=== PATIENT | female | born 1955 | race Caucasian/White ===

== ENCOUNTER → 2020-11-15 | Outpatient (CLI) | payer MEDICARE, MEDICAID ==
[2016-08-07 11:15] VITALS: BP 125/55
[~2020-11-15] MED LIST: ASPI-482 PO; CHOL500016 PO; CIPR500T94 PO; CITA40TA5 PO; CONTRAST GIVEN. MC PRN; CYAN-25 PO; CYCL10TA2 PO; DOCU-150 PO; FURO40TA4 PO; HYDR-2761 PO; HYDR-2765 PO; IOHEXOL 240 MG/ML 50ML VIAL. PO ONE; IOHEXOL 300 MG/ML 100ML VIAL. IV ONE; LEVO100T5 PO; MOME13HF2 IH; MONT10TA49 PO; OLME40TA12 PO; OMEP40CA45 PO; OXYC1TAB7 PO; TIOT18CA IH; VENTOLIN HFA18 GM INH
--- NOTE | 2020-11-15 18:04 | RAD ---
EXAM: CT Chest, Abdomen, and Pelvis with IV contrast INDICATION: Reason: RESTAGING ANAL CANCER (CANAL) / Spl. Instructions: IV OMNI 300 75 MLS AND PO OMNI 240 50 MLS / History: TECHNIQUE: Multi-detector row CT images were acquired from the thoracic inlet through the ischial tu berosities with the use of IV contrast. Sagittal and coronal images were acquired from the transaxial data. All CT scans performed at this facility utilize dose optimization techniques as appropriate to the exam, including the following: Automated exposure control and adjustment of the mA and/or KV acc ording to patient size (this includes techniques or standardized protocols for targeted exams where d ose is indication/reason for exam). IV CONTRAST: Administered ORAL CONTRAST: Administered COMPARISON: No relevant comparisons are currently available. FINDINGS: CHEST: CARDIOVASCULAR: Unremarkable MEDIASTINUM & JERMAINE: No adenopathy or masses. LUNGS: No pulmonary infiltrate, nodule, or other focal abnormality. PLEURAL SPACE: Trace right pleural effusion. Otherwise no pleural effusions or pneumothorax. OSSEOUS & SOFT TISSUE: Unremarkable ABDOMEN/PELVIS: LIVER: Unremarkable BILIARY SYSTEM: Gallbladder is absent. Bile ducts are not dilated. PANCREAS: Unremarkable SPLEEN: Unremarkable ADRENALS: Unremarkable KIDNEYS & URETERS: Unremarkable BLADDER: Unremarkable REPRODUCTIVE ORGANS: Hysterectomy. Ovaries not seen and likely surgically absent as well. No adnexal mass or pelvic fluid collection. GASTROINTESTINAL: The stomach, small bowel, and colon are unremarkable. Nonspecific soft tissue fulln ess at the anal canal is present (image 82 of axial series 4). The appendix is normal. MESENTERY/PERITONEUM/RETROPERITONEUM: Unremarkable VASCULAR: Unremarkable LYMPH NODES: No adenopathy OSSEOUS & SOFT TISSUES: Unremarkable IMPRESSION: Nonspecific soft tissue fullness of the anal canal, possibly reflecting posttreatment changes. No simón dence of locally advanced disease or distant metastases in the included field of view.. Electronically signed by: Bill Noel MD (11/15/2020 6:02 PM) [id number]
== END ==
LOC: CT 11:50
PROVIDERS: ATTEND Internal Medicine Hematology & Oncology
DX: C21.0 Malignant neoplasm of anus, unspecified (principal)
CPT/HCPCS: 71260; 74177; Q9966; Q9967

== ENCOUNTER → 2020-11-28 | Outpatient (CLI) | payer MEDICARE, MEDICAID ==
[2016-08-07 11:15] VITALS: BP 125/55
[~2020-11-28] MED LIST changes: +BUPR300T92 PO; -CONTRAST GIVEN. MC PRN; +CRESTOR40 MG PO; +DULO60CA6 PO; +GADOTERATE 7.5 MMOL/15ML VIAL. IVP ONE; -IOHEXOL 240 MG/ML 50ML VIAL. PO ONE; -IOHEXOL 300 MG/ML 100ML VIAL. IV ONE; +TORS10TA3 PO; +[UNRECOGNIZED DRUG - CODE] PO
--- NOTE | 2020-11-28 15:23 | KCIC ---
MRI of the thoracic spine without and with contrast 11/28/2020 Clinical history: Chronic mid and low back pain. TECHNIQUE: Unenhanced T1-weighted, T2-weighted and inversion recovery sagittal and T1-weighted and T2 -weighted axial images of the thoracic spine were obtained. After the intravenous administration of 2 0 cc of Clariscan, enhanced T1-weighted sagittal and axial images of the thoracic spine were obtained . FINDINGS: Mild S-shaped curvature of the thoracolumbar spine is seen. Degenerative signal changes and loss of height are seen involving all of the disks of the thoracic spine. Degenerative signal change s are seen within the marrow surrounding these discs. The posterior aspect of the thoracic spinal cord is deformed by prominent CSF centered at T3-4. This finding is felt to reflect an underlying arachnoid cyst in this region. This is posterior to the thor acic spinal cord, right greater than left. It measures approximately 1.8 x 1.2 x 0.9 cm in craniocaud al, transverse and AP dimensions. This appears to impinge upon the thoracic spinal cord, right greate r than left at T3-4. There is questionable increased signal intensity involving the thoracic spinal c ord superior to this at the T2-3 level on the T2-weighted and inversion recovery images which may ref lect cord edema. This measures approximately 8 mm in greatest diameter. No additional area of abnorma l signal intensity is seen involving the thoracic spinal cord. No area of abnormal contrast enhanceme nt is noted. Degenerative changes are seen involving the thoracic disc spaces consisting of minimal to mild genera lized disc bulges and degenerative changes involving the facet joints. Small focal central/right para central disc protrusions are seen at T6-7, T7-8 and T8-9 which measure 2 to 3 mm in AP diameter. Thes e findings results in mild central spinal canal stenosis at T11-12 without evidence of cord impingeme nt. No neural foraminal stenosis is seen. IMPRESSION: 1. Degenerative changes are seen involving the thoracic spine. These findings result in mild central spinal canal stenosis at T11-12. No neural foraminal stenosis is seen. 2. . There appears to be an arachnoid cyst posterior to the thoracic spinal cord centered at T3-4. Th is appears to impinge upon the thoracic spinal cord, right greater than left at T3-4. Questionable ed marie is seen involving the thoracic spinal cord superior to this centered at T2-3. Electronically signed by: Dylan Hsieh MD (11/28/2020 3:21 PM) [id number]
== END ==
LOC: KCIC MRI 10:41
PROVIDERS: ATTEND Neurological Surgery
DX: M47.24 Other spondylosis with radiculopathy, thoracic region (principal); M48.04 Spinal stenosis, thoracic region
CPT/HCPCS: 72157; A9575

== ENCOUNTER → 2020-12-06 | Outpatient (CLI) | payer MEDICARE, MEDICAID ==
[2016-08-07 11:15] VITALS: BP 125/55
[~2020-12-06] MED LIST changes: -GADOTERATE 7.5 MMOL/15ML VIAL. IVP ONE
== END ==
LOC: LAB 11:24
PROVIDERS: ATTEND Internal Medicine Gastroenterology
DX: Z01.812 Encounter for preprocedural laboratory examination (principal); K63.5 Polyp of colon; Z20.822 Contact with and (suspected) exposure to COVID-19
CPT/HCPCS: U0003

== ENCOUNTER → 2020-12-09 | Day surgery (SDC) | payer MEDICARE, MEDICAID ==
[~2020-12-09] MED LIST changes: +HYDROmorphone 2 MG/ML VIAL IVP PRN; +IV RINGERS,LACTATED 1000ML 1,000 ML IV SCH; +LIDOCAINE 2% PF 5 ML VIAL. ONE; +MORPHINE SULFATE 2 MG/ML VIAL. IVP PRN; +PROCHLORPERAZINE 10 MG/2 ML VIAL. IVP PRN; +PROPOFOL 10 MG/ML (20ML) VIAL. IV ONE; +fentaNYL PF VIAL 100 MCG/2 ML VIAL IVP PRN
[2020-12-09 09:08] VITALS: BP 133/59
== END | disposition home or self-care (01) ==
LOC: SURG 07:38
PROVIDERS: ATTEND Internal Medicine Gastroenterology
DX: Z12.11 Encounter for screening for malignant neoplasm of colon (principal); K64.0 First degree hemorrhoids; Z85.038 Personal history of other malignant neoplasm of large intestine; E78.00 Pure hypercholesterolemia, unspecified; I10 Essential (primary) hypertension; J44.9 Chronic obstructive pulmonary disease, unspecified; E66.9 Obesity, unspecified; F41.9 Anxiety disorder, unspecified; F32.9 Major depressive disorder, single episode, unspecified; K21.9 Gastro-esophageal reflux disease without esophagitis; G47.30 Sleep apnea, unspecified; Z90.710 Acquired absence of both cervix and uterus; Z98.890 Other specified postprocedural states; Z87.891 Personal history of nicotine dependence; Z79.82 Long term (current) use of aspirin; Z79.899 Other long term (current) drug therapy; Z88.8 Allergy status to other drugs, medicaments and biological substances; Z88.5 Allergy status to narcotic agent
CPT/HCPCS: 45378; J2704

== ENCOUNTER → 2021-01-06 | Outpatient (CLI) | payer MEDICARE, MEDICAID ==
[2020-12-09 09:08] VITALS: BP 133/59
[~2021-01-06] MED LIST changes: +CYCL5TAB PO; -HYDROmorphone 2 MG/ML VIAL IVP PRN; -IV RINGERS,LACTATED 1000ML 1,000 ML IV SCH; -LIDOCAINE 2% PF 5 ML VIAL. ONE; -MORPHINE SULFATE 2 MG/ML VIAL. IVP PRN; +PANT20TA2 PO; -PROCHLORPERAZINE 10 MG/2 ML VIAL. IVP PRN; -PROPOFOL 10 MG/ML (20ML) VIAL. IV ONE; -fentaNYL PF VIAL 100 MCG/2 ML VIAL IVP PRN
[2021-01-06 13:17] LABS: BASO # 0.1 x10^3/uL (0.0-0.2); BASO % 1 % (0-3); EOS # 0.2 x10^3/uL (0.0-0.7); EOS % 2 % (0-3); HEMATOCRIT 39.6 % (36.0-47.0); HEMOGLOBIN 13.4 g/dL (12.0-15.5); LYMPH # 1.5 x10^3/uL (1.0-4.8); LYMPH % 21 % (24-48); MEAN CORPUSCULAR HEMOGLOBIN 32 pg (25-35); MEAN CORPUSCULAR HGB CONC 34 g/dL (31-37); MEAN CORPUSCULAR VOLUME 93 fL (79-100); MONO # 0.5 x10^3/uL (0.0-1.1); MONO % 7 % (0-9); NEUT # 4.9 x10^3/uL (1.8-7.7); NEUT % 69 % (31-73); PLATELET COUNT 256 x10^3/uL (140-400); RED BLOOD COUNT 4.26 x10^6/uL (3.50-5.40); WHITE BLOOD COUNT 7.1 x10^3/uL (4.0-11.0)
--- NOTE | 2021-01-06 13:22 | EKG ---
[facility] [address] [place] [address] Test Date: 2021-01-06 Test Time: 13:19:01 Pat Name: TANISHA RAMON Department: Room: Gender: F Spine Surgeon: : [id number] Requested By: ASHLEY BAÑUELOS Order Number: [id number] Reading MD: Stephen Najera MD Measurements Intervals Proctor Rate: 69 P: 50 TN: 156 QRS: 33 QRSD: 60 T: 54 QT: 358 QTc: 385 Interpretive Statements SINUS RHYTHM Electronically Signed On 01-09-2021 14:24:54 CDT by Stephen Najera MD
[2021-01-06 13:26] LABS: ALBUMIN 3.5 g/dL (3.4-5.0); ALBUMIN/GLOBULIN RATIO 0.9 (1.0-1.7); CREATININE 1.1 mg/dL (0.6-1.0); TOTAL BILIRUBIN 0.4 mg/dL (0.2-1.0); TOTAL PROTEIN 7.5 g/dL (6.4-8.2)
== END ==
LOC: SURGPAT 12:25
PROVIDERS: ATTEND Neurological Surgery
DX: Z01.818 Encounter for other preprocedural examination (principal); M48.04 Spinal stenosis, thoracic region; G96.191 Perineural cyst
CPT/HCPCS: 36415; 80053; 85025; 87641; 93005

== ENCOUNTER → 2021-01-11 | Outpatient (CLI) | payer MEDICARE, MEDICAID ==
[2020-12-09 09:08] VITALS: BP 133/59
--- NOTE | 2021-01-10 14:13 | HP ---
ADMIT DATE: HISTORY OF PRESENT ILLNESS: The patient is a pleasant 65-year-old, who is having difficulty with mid and lower back pain. She notices pain, which radiates diffusely into her left leg. She notices a burning, numbness in both of her feet. She rates her pain as 8/10 and says it is constant. Virtually any activity increases her pain. She feels that her lower extremities are weak. She takes Aleve. She has had no recent falls. PAST MEDICAL HISTORY: Arthritis, COPD, hypertension, kidney stones, hypothyroidism, ulcers, cancer/radiation treatment. PAST SURGICAL HISTORY: Cholecystectomy, hysterectomy, carpal tunnel release on the right, thyroidectomy, ACDF, lumbar laminectomy at L4-L5 in 07/2016. CURRENT MEDICATIONS: Levothyroxine, Ventolin, vitamin D3, Aleve, rosuvastatin, duloxetine, furosemide, bupropion, vitamin B12. ALLERGIES: CODEINE. FAMILY HISTORY: Cancer, hypertension. SOCIAL HISTORY: Disabled. . Quit smoking more than 10 years ago. Smoked 1-2 packs per day for 28 years. Drinks alcohol 1-2 times per year. PHYSICAL EXAMINATION: GENERAL: Alert, pleasant, in no acute distress. HEAD: Normocephalic, atraumatic. SKIN: Warm and dry, well-healed lumbar incision. MUSCULOSKELETAL: Thoracic paraspinal muscle bulk is normal. There is moderate tenderness of the thoracic region with palpation, lumbar paraspinal muscle bulk is normal, restricted range of motion of the lumbar spine, mild tenderness of the lower lumbar spine with palpation, normal range of motion of the lower extremities bilaterally. EXTREMITIES: No clubbing, cyanosis or edema. NEUROLOGIC: Alert and oriented x 3. Strength is 5/5 in the bilateral lower extremities, sensory was intact to light touch in the lower extremities bilaterally except for decreased light touch sensation involving both of her feet and diffusely in her left leg, reflexes were trace and symmetric in the lower extremities bilaterally, unsteady gait. IMAGING: I reviewed a thoracic MRI scan. On that study at T3-T4, there is a moderately large arachnoid cyst, which is associated with stenosis at that level. ASSESSMENT AND PLAN: I believe the thoracic cyst is contributing to her pain, unsteadiness and lower extremity numbness. I spoke with her about treatment options. One option would be to follow the cyst for a time and see if it enlarges; however, she has no interest in that approach. She would strongly like surgery to decompress her spine in an attempt to help her with her pain and numbness. I outlined the surgery, which would include a laminectomy at T3-L4 with fenestration of the intradural arachnoid cyst. I spoke about the possibility of incomplete removal of the cyst. I discussed the possibility that her condition could be worsened and she could become paralyzed. I outlined the risk of surgery, especially in view of some of her health issues. She understands. She would like to go ahead. We did also review the expected postoperative course. She understands and would like to go ahead. We will make the arrangements. ASHLEY BAÑUELOS MD DR: SUSANNE/deb JOB#: [id number] / [id number]
--- NOTE | 2021-01-11 10:35 | RAD ---
EXAM: Thoracic spine CT without contrast. HISTORY: Skin marking at T3-T4 for spinal surgery procedural guidance. TECHNIQUE: Computed tomographic images of the lumbar spine were obtained without contrast. Multiplana r reformatting was performed. *One or more of the following individualized dose reduction techniques were utilized for this examina tion: 1. Automated exposure control. 2. Adjustment of the mA and/or kV according to patient size. 3. Use of iterative reconstruction technique. COMPARISON: MRI dated 11/28/2020. FINDINGS: There is thoracic kyphoscoliosis. There is minimal anterolisthesis of T2 on T3 and T3 on T4 and T4 on T5. There is multilevel endplate remodeling and anterior predominant spurring. There are f ew thoracic endplate Schmorl's nodes. There is a bone island within the superior aspect of T11. There are few suspected osseous hemangiomas. There is no suspicious osseous lesion. There is instrumented intraspinal fusion and disc space fusion device placement at the lower cervical levels, not formally assessed on this exam. At C7-T1, there is a suspected posterior central disc pr otrusion. There is no stenosis. At T2-T3, there is a right paracentral disc protrusion. There is no stenosis. At T2-T3, there is slight ossification along the ligament of flavum. There is no stenosis. At T3-T4, there is ventral deviation of the thoracic spinal cord due to a suspected thoracic cord her niation or arachnoid cyst, better characterized on the prior MRI. There is moderate right facet arthr opathy. There is mild right foraminal stenosis. The skin overlying this level was marked for surgical guidance. At T4-T5, there is moderate right facet arthropathy. There is moderate right foraminal stenosis. At T5-T6, there is mild right facet arthropathy. There is no stenosis. At T6-T7, there is a right paracentral disc protrusion. There is no stenosis. At T7-T8, there is a left paracentral disc protrusion. There is no stenosis. At T8-T9, there is a left paracentral disc protrusion. There is no stenosis. At T8-9 and T10, there is no stenosis. At T10-T11, there is no stenosis. At T11-T12, there is a right paracentral to lateral recess disc protrusion and osteophyte complex. Th ere is mild right greater than left facet arthropathy. There is slight retrolisthesis. There is mild central canal stenosis. There is calcified atherosclerotic plaque involving the aorta and coronary arteries. There is a small right pleural effusion and right lower lobe atelectasis or pleural-parenchymal scarring. There is no pneumothorax. There is mild pulmonary emphysema with biapical subpleural bleb formation. There are 1 mm and 2 mm nodules within the left upper lobe, likely benign based on size. IMPRESSION: 1. Skin marking on the skin over the midline T3-T4 level for surgical guidance. There is ventral rahel ation of the thoracic spinal cord at this level is characterized on the prior MRI, the appearance of which favors a ventral cord herniation or arachnoid cyst. 2. Multilevel degenerative change involving the thoracic spine, described in detail above. This resul ts in foraminal and central canal stenosis at the aforementioned levels. 3. Instrumented fusion at the lower cervical levels, not formally assessed on this exam. 4. Mild thoracic kyphoscoliosis and minimal listhesis at the aforementioned levels. 5. Mild pulmonary emphysema with small right pleural effusion and right lower lobe atelectasis or sca rring. There are tiny benign-appearing nodules within the left upper lobe measuring up to 2 mm. Electronically signed by: Leesa Alvarado MD (01/11/2021 10:33 AM) [id number]
== END ==
LOC: CT 09:50
PROVIDERS: ATTEND Neurological Surgery
DX: M47.814 Spondylosis without myelopathy or radiculopathy, thoracic region (principal); M71.38 Other bursal cyst, other site; M51.44 Schmorl's nodes, thoracic region; M43.14 Spondylolisthesis, thoracic region; M51.24 Other intervertebral disc displacement, thoracic region; M25.78 Osteophyte, vertebrae; J90 Pleural effusion, not elsewhere classified
CPT/HCPCS: 72128

== ENCOUNTER 2021-01-12 07:01 | Inpatient (IN) | payer MEDICARE, MEDICAID ==
[2021-01-12] VITALS (9 sets, daily range): BP systolic 126–171; BP diastolic 58–76
[~2021-01-12] VITALS: Ht 165.1 cm; Wt 110.0 kg
--- NOTE | 2021-01-12 06:35 | HP ---
ADMIT DATE: 01/12/2021 HISTORY OF PRESENT ILLNESS: The patient is a pleasant 65-year-old, who is having difficulty with mid and lower back pain. She notices pain, which radiates diffusely into her left leg. She notices a burning, numbness in both of her feet. She rates her pain as 8/10 and says it is constant. Virtually any activity increases her pain. She feels that her lower extremities are weak. She takes Aleve. She has had no recent falls. PAST MEDICAL HISTORY: Arthritis, COPD, hypertension, kidney stones, hypothyroidism, ulcers, cancer/radiation treatment. PAST SURGICAL HISTORY: Cholecystectomy, hysterectomy, carpal tunnel release on the right, thyroidectomy, ACDF, lumbar laminectomy at L4-L5 in 07/2016. CURRENT MEDICATIONS: Levothyroxine, Ventolin, vitamin D3, Aleve, rosuvastatin, duloxetine, furosemide, bupropion, vitamin B12. ALLERGIES: CODEINE. FAMILY HISTORY: Cancer, hypertension. SOCIAL HISTORY: Disabled. . Quit smoking more than 10 years ago. Smoked 1-2 packs per day for 28 years. Drinks alcohol 1-2 times per year. PHYSICAL EXAMINATION: GENERAL: Alert, pleasant, in no acute distress. HEAD: Normocephalic, atraumatic. SKIN: Warm and dry, well-healed lumbar incision. MUSCULOSKELETAL: Thoracic paraspinal muscle bulk is normal. There is moderate tenderness of the thoracic region with palpation, lumbar paraspinal muscle bulk is normal, restricted range of motion of the lumbar spine, mild tenderness of the lower lumbar spine with palpation, normal range of motion of the lower extremities bilaterally. EXTREMITIES: No clubbing, cyanosis or edema. NEUROLOGIC: Alert and oriented x 3. Strength is 5/5 in the bilateral lower extremities, sensory was intact to light touch in the lower extremities bilaterally except for decreased light touch sensation involving both of her feet and diffusely in her left leg, reflexes were trace and symmetric in the lower extremities bilaterally, unsteady gait. IMAGING: I reviewed a thoracic MRI scan. On that study at T3-T4, there is a moderately large arachnoid cyst, which is associated with stenosis at that level. ASSESSMENT AND PLAN: I believe the thoracic cyst is contributing to her pain, unsteadiness and lower extremity numbness. I spoke with her about treatment options. One option would be to follow the cyst for a time and see if it enlarges; however, she has no interest in that approach. She would strongly like surgery to decompress her spine in an attempt to help her with her pain and numbness. I outlined the surgery, which would include a laminectomy at T3-L4 with fenestration of the intradural arachnoid cyst. I spoke about the possibility of incomplete removal of the cyst. I discussed the possibility that her condition could be worsened and she could become paralyzed. I outlined the risk of surgery, especially in view of some of her health issues. She understands. She would like to go ahead. We did also review the expected postoperative course. She understands and would like to go ahead. We will make the arrangements. ASHLEY BAÑUELOS MD DR: SUSANNE/deb JOB#: [id number] / [id number] SOPHY
[~2021-01-12 07:01] MED LIST changes: +BACITRACIN 50,000 UNIT in IV NORMAL SALINE 1000ML BAG 1,000 ML IRR ONE; -DOCU-150 PO; +DOCU-158 PO; +HYDROmorphone 2 MG/ML VIAL IVP PRN; +IV RINGERS,LACTATED 1000ML 1,000 ML IV SCH; -OMEP40CA45 PO; +OMEP40CA7 PO; +PROCHLORPERAZINE 10 MG/2 ML VIAL. IVP PRN; +fentaNYL PF VIAL 100 MCG/2 ML VIAL IVP PRN
[2021-01-12] MEDS ORDERED: KETOROLAC 60 MG/2 ML VIAL. ONE (07:09)
[2021-01-12] MEDS ORDERED: GELATIN SPONGE SIZE 100. ONE (07:09)
[2021-01-12] MEDS ORDERED: BUPIVACAINE-EPI 0.5%-1:200000 MPF 30 ML VIAL. ONE (07:09)
[2021-01-12] MEDS ORDERED: THROMBIN TOPICAL 20,000 UNIT SPRAY.SYRN KIT TP ONE (07:10)
[2021-01-12] MEDS ORDERED: SCOPOLAMINE 1.5MG PATCH. TD ONE (07:30)
[2021-01-12] MEDS ORDERED: PROPOFOL 50 ML IV ONE ×2 (07:37→10:27)
[2021-01-12] MEDS ORDERED: SUCCINYLCHOLINE 200 MG/10 ML VIAL. ONE (07:37)
[2021-01-12] MEDS ORDERED: PROPOFOL 10 MG/ML (20ML) VIAL. IV ONE (07:37)
[2021-01-12] MEDS ORDERED: fentaNYL PF VIAL 100 MCG/2 ML VIAL ONE ×2 (07:37→14:19)
[2021-01-12] MEDS ORDERED: ROCURONIUM 50 MG/5 ML VIAL. ONE (07:38)
[2021-01-12] MEDS ORDERED: REMIFENTANIL 2 MG VIAL. IV ONE (07:38)
[2021-01-12] MEDS ORDERED: 0.9 % SODIUM CHLORIDE 20 ML VIAL. IJ ONE (07:40)
[2021-01-12] MEDS ORDERED: ceFAZolin 2GM PREMIX 2 GM/50 ML BAG IV ONE (08:00)
[2021-01-12] MEDS: ceFAZolin SODIUM IV Push 1 GM VIAL. IVP SCH ×3 (09:20→17:14)
[2021-01-12] MEDS ORDERED: PHENYLEPHRINE in 0.9% NACL PF 1 MG/10 ML SYRINGE. IV ONE (09:36)
[2021-01-12] MEDS ORDERED: DEXAMETHASONE SOD PHOS 4 MG/ML VIAL ONE ×2 (09:54→10:40)
[2021-01-12] MEDS ORDERED: MAG HYDROX/ALUMINUM HYD/SIMETH 30 ML ORAL.SUSP PO PRN (10:00)
[2021-01-12] MEDS ORDERED: fentaNYL PF VIAL 100 MCG/2 ML VIAL IVP PRN (10:00)
[2021-01-12] MEDS ORDERED: diphenhydrAMINE HCL 25 MG CAPSULE PO PRN (10:00)
[2021-01-12] MEDS ORDERED: CALCIUM CARBONATE 500 MG TAB.CHEW PO PRN (10:00)
[2021-01-12] MEDS ORDERED: 0.9 % SODIUM CHLORIDE 10 ML DISP.SYRIN. IV PRN (10:00)
[2021-01-12] MEDS ORDERED: ACETAMINOPHEN 325 MG TABLET. PO PRN (10:00)
[2021-01-12] MEDS ORDERED: ALBUTEROL SULFATE 2.5 MG/3 ML NEBU. NEB PRN (10:00)
[2021-01-12] MEDS ORDERED: NALOXONE 0.4 MG/ML VIAL. IV PRN (10:00)
[2021-01-12] MEDS ORDERED: MAGNESIUM HYDROXIDE 2,400 MG/30 ML ORAL.SUSP. PO PRN (10:00)
[2021-01-12] MEDS ORDERED: ONDANSETRON PF 4 MG/2 ML VIAL. ONE (11:49)
[2021-01-12] MEDS ORDERED: NON FORMULARY ITEM (Albuterol Sulfate (Ventolin Hfa Inhaler) 2 PUFF) INH SCH (12:00)
[2021-01-12] MEDS ORDERED: REMIFENTANIL 1 MG VIAL. IV ONE (12:28)
[2021-01-12] MEDS ORDERED: ceFAZolin SODIUM IV Push 1 GM VIAL. IVP ONE ×2 (12:58→13:35)
[2021-01-12] MEDS: fentaNYL PF VIAL 100 MCG/2 ML VIAL IVP PRN ×2 (14:21→14:26)
[2021-01-12] MEDS ORDERED: MORPHINE SULFATE 2 MG/ML VIAL. ONE (14:43)
[2021-01-12] MEDS: CYCLOBENZAPRINE 10 MG TABLET. PO SCH ×3 (14:45→22:59)
[2021-01-12] MEDS: MORPHINE SULFATE 2 MG/ML VIAL. IVP PRN ×2 (14:47→14:58)
[2021-01-12] MEDS ORDERED: HYDROmorphone 2 MG/ML VIAL ONE (15:15)
[2021-01-12] MEDS: PANTOPRAZOLE 40 MG TABLET.DR. PO SCH (17:13)
[2021-01-12] MEDS: LOSARTAN POTASSIUM 50 MG TABLET. PO SCH (17:13)
[2021-01-12] MEDS: POTASSIUM CL 20MEQ D5-0.45NACL 1,000 ML IV SCH ×2 (17:14→23:20)
--- NOTE | 2021-01-12 17:40 | NUR ---
received from recovery. she is alert and oriented x 4. she has tremors in bilateral upper extremities. 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 pulses are equal and strong. she states that from her elbows to shoulders are painful. explained is probably related to positioning from ct scan yesterday and the surgery today. dressing from her neck to upper back is clean dry and intact. No swelling noted. ice pack placed. bilateral feet extension and flexion are equal. gait not observed at this time. states she fell 2 days ago. denies use of walker and/or cane.admits she might need one. states that she still has tingling in her left toes and some numbness in left leg. she is able to feed her herself regardless of the bilateral tremors. Farida states that she did not take any medications this am or last evening. she was given her blood pressure, gerd medication and antibiotic along with pain medication. refused flexeeril states that it does not help her. Addendum: 01/12/21 at 1750 by GISELA LOPEZ RN Flexeril
--- NOTE | 2021-01-12 18:48 | NUR ---
up to bedside commode with assist of 2 and walker. voided large amount. she has swelling in the upper neck; ice applied. up in recliner. fan on.
[2021-01-12] MEDS: DOCUSATE SODIUM 100 MG CAPSULE. PO SCH (19:42)
[2021-01-12] MEDS: LEVOTHYROXINE 100 MCG TABLET PO SCH (19:43)
[2021-01-12] MEDS: DULoxetine HCL 30 MG CAPSULE.DR PO SCH (19:44)
[2021-01-12] MEDS: HYDROcodone/APAP 5/325MG 1 TAB TABLET PO PRN (19:45)
[2021-01-12] MEDS ORDERED: NON FORMULARY ITEM (Rosuvastatin Calcium (Crestor) 20 MG) PO SCH (21:00)
[2021-01-13] MEDS: ceFAZolin SODIUM IV Push 1 GM VIAL. IVP SCH ×2 (01:03→08:29)
[2021-01-13] MEDS: HYDROcodone/APAP 5/325MG 1 TAB TABLET PO PRN ×2 (01:04→08:29)
[2021-01-13 03:00] VITALS: BP 124/47
[2021-01-13] MEDS: PANTOPRAZOLE 40 MG TABLET.DR. PO SCH (06:23)
--- NOTE | 2021-01-13 06:30 | NUR ---
Patient has rested quietly this shift. Up to void as needed. Cold Packs to incision for comfort as needed. Pain medication given as needed and Patient verbalized relief of pain with pain med given. Patient denies pain at this time. Call light in reach. Instructed Patient to call for assist as needed. Patient verbalized understanding.
[2021-01-13 06:39] VITALS: BP 119/49
[2021-01-13] MEDS: DOCUSATE SODIUM 100 MG CAPSULE. PO SCH ×2 (08:31→20:23)
[2021-01-13] MEDS: CYANOCOBALAMIN (VITAMIN B-12) 1,000 MCG TABLET. PO SCH (08:31)
[2021-01-13] MEDS: DULoxetine HCL 30 MG CAPSULE.DR PO SCH ×2 (08:31→20:23)
[2021-01-13] MEDS: TORSEMIDE 20 MG TABLET. PO SCH (08:32)
[2021-01-13] MEDS: CHOLECALCIFEROL (VITAMIN D3) 5,000 UNIT CAPSULE PO SCH (08:32)
[2021-01-13] MEDS: CYCLOBENZAPRINE 10 MG TABLET. PO SCH ×3 (08:37→20:24)
[2021-01-13] MEDS: LOSARTAN POTASSIUM 50 MG TABLET. PO SCH (08:41)
[2021-01-13] MEDS: hydroCHLOROthiazide 12.5 MG CAPSULE PO SCH (08:41)
--- NOTE | 2021-01-13 09:00 | NUR ---
Up for breakfast and return back to bed. Still having a lot pain chest area/breasts. Incision site intact with scant shadowing. No c/o pain arms. Using walker to ambulate. Cont. monitor.
[2021-01-13 11:09] VITALS: BP 148/65
--- NOTE | 2021-01-13 12:28 | PDOC ---
PROGRESS NOTES Date of Service DATE: 01/13/21 TIME: 12:25 Subjective Subjective POD #1 Up in chair c/o back /incisional pain no headache has been up and ambulated with PT Objective Objective Vital Signs Date Time Temp Pulse Resp B/P (MAP) Pulse Ox O2 Delivery O2 Flow Rate FiO2 01/13/21 11:09 98.6 73 20 148/65 (92) 91 Room Air 98.6 01/13/21 06:39 2.0 Intake and Output 01/13/21 07:00 Intake Total 2340 ml Output Total 1475 ml Balance 865 ml Intake Oral 840 ml IV Total 1500 ml Output Urine Total 1400 ml Estimated Blood Loss 75 ml Physical Exam General: Alert, Cooperative Neuro: Other (LE strength 5/5 ) Skin: Other (dressing dry and intact) Plan Plan of Care Continue PT Pain control possible dc tomorrow Comment Review of Relevant I have reviewed the following items jase (where applicable) has been applied. Labs Laboratory Tests Test 01/12/21 07:25 SARS-CoV-2 RNA (ZAHRA) Negative (Negative) SARS-CoV-2 Antigen (Rapid) Negative (NEGATIVE) Medications Current Medications Bacitracin 89468 unit/Sodium Chloride 1,000 ml @ 1,000 mls/hr 1X ONCE IRR Last administered on 01/12/21at 10:09; Start 01/12/21 at 06:00; Stop 01/12/21 at 06:59; Status DC Fentanyl Citrate (Fentanyl 2ml Vial) 25 mcg PRN Q5MIN PRN IVP MILD PAIN 1-3; Start 01/12/21 at 06:00; Stop 01/13/21 at 05:59; Status DC Fentanyl Citrate (Fentanyl 2ml Vial) 50 mcg PRN Q5MIN PRN IVP MODERATE PAIN 4-6 Last administered on 01/12/21at 14:26; Start 01/12/21 at 06:00; Stop 01/13/21 at 05:59; Status DC Morphine Sulfate (Morphine Sulfate) 1 mg PRN Q10MIN PRN IVP SEVERE PAIN 7-10 Last administered on 01/12/21at 14:58; Start 01/12/21 at 06:00; Stop 01/13/21 at 05:59; Status DC Ringer's Solution 1,000 ml @ 30 mls/hr Q24H IV Last administered on 01/12/21at 07:55; Start 01/12/21 at 06:00; Stop 01/12/21 at 17:59; Status DC Hydromorphone HCl (Dilaudid) 0.5 mg PRN Q10MIN PRN IVP SEVERE PAIN 7-10, 2nd CHOICE Last administered on 01/12/21at 15:17; Start 01/12/21 at 06:00; Stop 01/13/21 at 05:59; Status DC Prochlorperazine Edisylate (Compazine) 5 mg PACU PRN PRN IVP NAUSEA, MRX1; Start 01/12/21 at 06:00; Stop 01/13/21 at 05:59; Status DC Cefazolin Sodium/ Dextrose 50 ml @ 100 mls/hr 1X ONCE IV Last administered on 01/12/21at 09:20; Start 01/12/21 at 06:00; Stop 01/12/21 at 06:29; Status DC Gelatin (Gelfoam Size 100) 1 each STK-MED ONCE .ROUTE Last administered on 01/12/21at 10:09; Start 01/12/21 at 07:09; Stop 01/12/21 at 07:10; Status DC Bupivacaine HCl/ Epinephrine Bitart (Sensorcain-Epi 0.5%-1:498774 Mpf) 30 ml STK-MED ONCE .ROUTE Last administered on 01/12/21at 10:09; Start 01/12/21 at 07:09; Stop 01/12/21 at 07:10; Status DC Ketorolac Tromethamine (Toradol Im) 60 mg STK-MED ONCE .ROUTE Last administered on 01/12/21at 10:09; Start 01/12/21 at 07:09; Stop 01/12/21 at 07:10; Status DC Thrombin 20,000 unit STK-MED ONCE TP Last administered on 01/12/21at 10:09; Start 01/12/21 at 07:10; Stop 01/12/21 at 07:10; Status DC Scopolamine (Transderm-Scop) 1 patch 1X ONCE TD Last administered on 01/12/21at 07:55; Start 01/12/21 at 07:30; Stop 01/12/21 at 07:31; Status DC Propofol (Diprivan) 200 mg STK-MED ONCE IV ; Start 01/12/21 at 07:37; Stop 01/12/21 at 07:37; Status DC Propofol 50 ml @ As Directed STK-MED ONCE IV ; Start 01/12/21 at 07:37; Stop 01/12/21 at 07:37; Status DC Fentanyl Citrate (Fentanyl 2ml Vial) 100 mcg STK-MED ONCE .ROUTE ; Start 01/12/21 at 07:37; Stop 01/12/21 at 07:37; Status DC Succinylcholine Chloride (Anectine) 200 mg STK-MED ONCE .ROUTE ; Start 01/12/21 at 07:37; Stop 01/12/21 at 07:38; Status DC Rocuronium Lyons (Zemuron) 50 mg STK-MED ONCE .ROUTE ; Start 01/12/21 at 07:38; Stop 01/12/21 at 07:38; Status DC Remifentanil HCl (Ultiva) 2 mg STK-MED ONCE IV ; Start 01/12/21 at 07:38; Stop 01/12/21 at 07:39; Status DC Sodium Chloride (SODIUM CHLORIDE 20ml) 20 ml STK-MED ONCE IJ ; Start 01/12/21 at 07:40; Stop 01/12/21 at 07:40; Status DC Phenylephrine HCl (PHENYLEPHRINE in 0.9% NACL PF) 1 mg STK-MED ONCE IV ; Start 01/12/21 at 09:36; Stop 01/12/21 at 09:36; Status DC Cyanocobalamin (Vitamin B-12) 1,000 mcg DAILY PO Last administered on 01/13/21at 08:31; Start 01/13/21 at 09:00 Levothyroxine Sodium (Synthroid) 100 mcg QHS PO Last administered on 01/12/21at 19:43; Start 01/12/21 at 21:00 Non-Formulary Medication (Albuterol Sulfate (Ventolin Hfa Inhaler)) 2 puff Q4HRS INH ; Start 01/12/21 at 12:00; Status UNV Vitamin D (Vitamin D3) 5,000 unit DAILY PO Last administered on 01/13/21at 08:32; Start 01/13/21 at 09:00 Cyclobenzaprine HCl (Flexeril) 5 mg TID PO Last administered on 01/13/21at 08:37; Start 01/12/21 at 14:00 Duloxetine HCl (Cymbalta) 60 mg BID PO Last administered on 01/13/21at 08:31; Start 01/12/21 at 21:00 Pantoprazole Sodium (Protonix) 40 mg DAILYAC PO Last administered on 01/13/21at 06:23; Start 01/12/21 at 17:00 Non-Formulary Medication (Rosuvastatin Calcium (Crestor)) 20 mg HS PO ; Start 01/12/21 at 21:00; Status UNV Hydrochlorothiazide (Microzide) 12.5 mg DAILY PO Last administered on 01/13/21at 08:41; Start 01/13/21 at 09:00 Losartan Potassium (Cozaar) 100 mg DAILY PO Last administered on 01/13/21at 08:41; Start 01/12/21 at 17:00 Torsemide (Demadex) 10 mg DAILY PO Last administered on 01/13/21at 08:32; Start 01/13/21 at 09:00 Dexamethasone Sodium Phosphate (Decadron) 4 mg STK-MED ONCE .ROUTE ; Start 01/12/21 at 09:54; Stop 01/12/21 at 09:54; Status DC Albuterol Sulfate (Ventolin Neb Soln) 2.5 mg PRN Q4HRS PRN NEB SHORTNESS OF BREATH; Start 01/12/21 at 10:00 Acetaminophen (Tylenol) 650 mg PRN Q6HRS PRN PO MILD PAIN / TEMP > 100.3'F; Start 01/12/21 at 10:00 Al Hydroxide/Mg Hydroxide (Mylanta Plus Xs) 30 ml PRN Q3HRS PRN PO HEARTBURN / GAS; Start 01/12/21 at 10:00 Calcium Carbonate/ Glycine (Tums) 500 mg PRN Q3HRS PRN PO INDIGESTION; Start 01/12/21 at 10:00 Diphenhydramine HCl (Benadryl) 25 mg PRN Q6HRS PRN PO ITCHING; Start 01/12/21 at 10:00 Naloxone HCl (Narcan) 0.1 mg PRN Q2MIN PRN IV SEE COMMENTS; Start 01/12/21 at 10:00 Sodium Chloride (Normal Saline Flush) 3 ml QSHIFT PRN IV AFTER MEDS AND BLOOD DRAWS; Start 01/12/21 at 10:00 Potassium Chloride/Dextrose/ Sod Cl 1,000 ml @ 75 mls/hr [id number] IV Last administered on 01/12/21at 17:14; Start 01/12/21 at 10:00 Acetaminophen/ Hydrocodone Bitart (Lortab 5/325) 1 tab PRN Q4HRS PRN PO MODERATE PAIN; Start 01/12/21 at 10:00 Acetaminophen/ Hydrocodone Bitart (Lortab 5/325) 2 tab PRN Q4HRS PRN PO SEVERE PAIN Last administered on 01/13/21at 08:29; Start 01/12/21 at 10:00 Docusate Sodium (Colace) 100 mg BID PO Last administered on 01/13/21at 08:31; Start 01/12/21 at 21:00 Magnesium Hydroxide (Milk Of Magnesia) 2,400 mg PRN Q12HR PRN PO CONSTIPATION; Start 01/12/21 at 10:00 Cefazolin Sodium (Ancef) 1 gm Q8HRS IVP Last administered on 01/12/21at 15:00; Start 01/12/21 at 14:00; Stop 01/12/21 at 15:51; Status DC Fentanyl Citrate (Fentanyl 2ml Vial) 50 mcg PRN Q2HR PRN IVP PAIN; Start 01/12/21 at 10:00 Propofol 50 ml @ As Directed STK-MED ONCE IV ; Start 01/12/21 at 10:27; Stop 01/12/21 at 10:27; Status DC Dexamethasone Sodium Phosphate (Decadron) 4 mg STK-MED ONCE .ROUTE ; Start 01/12/21 at 10:40; Stop 01/12/21 at 10:40; Status DC Ondansetron HCl (Zofran) 4 mg STK-MED ONCE .ROUTE ; Start 01/12/21 at 11:49; Stop 01/12/21 at 11:50; Status DC Remifentanil HCl (Ultiva) 1 mg STK-MED ONCE IV ; Start 01/12/21 at 12:28; Stop 01/12/21 at 12:28; Status DC Cefazolin Sodium/ Dextrose (Ancef 2gm Premix) 2 gm STK-MED ONCE IV ; Start 01/12/21 at 08:00; Stop 01/12/21 at 13:01; Status DC Fentanyl Citrate (Fentanyl 2ml Vial) 100 mcg STK-MED ONCE .ROUTE ; Start 01/12/21 at 14:19; Stop 01/12/21 at 14:19; Status DC Morphine Sulfate (Morphine Sulfate) 2 mg STK-MED ONCE .ROUTE ; Start 01/12/21 at 14:43; Stop 01/12/21 at 14:43; Status DC Hydromorphone HCl (Dilaudid) 2 mg STK-MED ONCE .ROUTE ; Start 01/12/21 at 15:15; Stop 01/12/21 at 15:16; Status DC Cefazolin Sodium (Ancef) 1 gm Q8H IVP Last administered on 01/13/21at 08:29; Start 01/12/21 at 17:00; Stop 01/13/21 at 09:01; Status DC Cefazolin Sodium (Ancef) 1 gm STK-MED ONCE IVP ; Start 01/12/21 at 13:35; Stop 01/12/21 at 15:51; Status DC Cefazolin Sodium (Ancef) 1 gm STK-MED ONCE IVP ; Start 01/12/21 at 12:58; Stop 01/12/21 at 15:51; Status DC Oxycodone/ Acetaminophen (Percocet 7.5/ 325) 1 tab PRN Q4HRS PRN PO SEVERE PAIN- 2ND CHOICE; Start 01/13/21 at 12:15 Active Scripts Active Reported Protonix (Pantoprazole Sodium) 20 Mg Tablet.dr 1 Tab PO DAILY Cyclobenzaprine Hcl 5 Mg Tablet 5 Mg PO TID Olmesartan-Hctz 40-12.5 mg Tab (Olmesartan/Hydrochlorothiazide) 1 Each Tablet Unknown Dose PO Torsemide 10 Mg Tablet 10 Mg PO Cymbalta (Duloxetine Hcl) 60 Mg Capsule.dr 60 Mg PO BID Crestor (Rosuvastatin Calcium) 40 Mg Tablet 20 Mg PO HS Stool Softener (Docusate Sodium) 100 Mg Capsule 100 Mg PO PRN PRN Last dose taken today 09 am Vitamin B-12 (Cyanocobalamin (Vitamin B-12)) 1,000 Mcg Tablet 1 Tab PO DAILY Next dose tomorrow 16 in am Ventolin Hfa Inhaler (Albuterol Sulfate) 18 Gm Hfa.aer.ad 2 Puff INH Q4HRS Resume prior to hospital stay Vitamin D3 (Cholecalciferol (Vitamin D3)) 5,000 Unit Tablet 1 Tab PO DAILY Next dose tomorrow 08/08/16 in am Levothyroxine Sodium 100 Mcg Tablet 1 Tab PO DAILY Next dose tomorrow 08/08/16 in am Vitals/I & O Vital Sign - Last 24 Hours 01/12/21 01/12/21 01/12/21 01/12/21 14:04 14:21 14:23 14:26 Temp 98.3 98.3 Pulse 87 85 Resp 18 16 16 16 B/P (MAP) 179/65 157/60 Pulse Ox 98 98 100 99 O2 Delivery Simple Mask Simple Mask Simple Mask Simple Mask O2 Flow Rate 6 10.0 10 10.0 01/12/21 01/12/21 01/12/21 01/12/21 14:47 14:51 14:58 15:06 Pulse 83 80 Resp 16 16 18 16 B/P (MAP) 155/64 159/65 Pulse Ox 95 95 95 95 O2 Delivery Nasal Cannula Nasal Cannula Nasal Cannula Nasal Cannula O2 Flow Rate 2.0 2.0 2.0 2.0 01/12/21 01/12/21 01/12/21 01/12/21 15:17 15:21 15:37 15:45 Temp 98.5 98.5 Pulse 82 80 79 Resp 16 16 16 20 B/P (MAP) 158/57 184/61 147/70 (95) Pulse Ox 96 94 97 94 O2 Delivery Nasal Cannula Nasal Cannula Nasal Cannula Nasal Cannula O2 Flow Rate 2.0 2 2 2.0 01/12/21 01/12/21 01/12/21 01/12/21 16:00 16:15 16:30 16:37 Pulse 78 77 80 B/P (MAP) 126/71 (89) 129/73 (91) 133/70 (91) O2 Delivery Room Air O2 Flow Rate 2.0 01/12/21 01/12/21 01/12/21 01/12/21 17:00 17:13 17:30 18:30 Temp 97.3 98.0 97.6 97.3 98.0 97.6 Pulse 80 88 77 79 Resp 22 B/P (MAP) 135/71 (92) 136/71 140/69 (92) 129/61 (83) Pulse Ox 95 96 O2 Delivery Nasal Cannula Nasal Cannula O2 Flow Rate 2.0 2.0 01/12/21 01/12/21 01/12/21 01/12/21 19:30 19:45 19:45 20:15 Temp 98.4 98.4 Pulse 87 Resp 20 20 18 B/P (MAP) 171/76 (107) Pulse Ox 98 98 O2 Delivery Nasal Cannula Room Air Room Air Nasal Cannula O2 Flow Rate 2.0 2.0 2.0 2.0 01/12/21 01/13/21 01/13/21 01/13/21 23:00 01:04 01:34 03:00 Temp 98.6 98.2 98.6 98.2 Pulse 77 73 Resp 18 20 18 B/P (MAP) 137/58 (84) 124/47 (72) Pulse Ox 94 94 94 O2 Delivery Nasal Cannula Room Air Nasal Cannula Nasal Cannula O2 Flow Rate 2.0 2.0 2.0 2.0 01/13/21 01/13/21 01/13/21 01/13/21 06:39 08:12 08:29 08:41 Temp 98.3 98.3 Pulse 71 73 Resp 18 B/P (MAP) 119/49 (72) 183/76 Pulse Ox 94 O2 Delivery Nasal Cannula Room Air Room Air O2 Flow Rate 2.0 01/13/21 01/13/21 09:00 11:09 Temp 98.6 98.6 Pulse 73 Resp 20 B/P (MAP) 148/65 (92) Pulse Ox 91 O2 Delivery Room Air Room Air Intake and Output 01/12/21 01/12/21 01/13/21 15:00 23:00 07:00 Intake Total 1400 ml 700 ml 240 ml Output Total 75 ml 500 ml 900 ml Balance 1325 ml 200 ml -660 ml Justifications for Admission Other Justification ASHLEY BAÑUELOS MD Jan 13, 2021 12:28
[2021-01-13] MEDS: POTASSIUM CL 20MEQ D5-0.45NACL 1,000 ML IV SCH (12:40)
--- NOTE | 2021-01-13 13:40 | NUR ---
Still having pain after receiving lortab earlier. Spoke with Piper HENRY and got orders for Percocet. Cont. monitor.
[2021-01-13] MEDS: oxyCODONE/APAP 7.5/325 1 TAB TABLET PO PRN ×2 (14:09→20:23)
[2021-01-13 15:19] VITALS: BP 126/52
--- NOTE | 2021-01-13 15:52 | OP ---
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 OPERATION PERFORMED: Thoracic laminectomy, partial T2, T3, T4, partial T5 with intradural exploration and removal/fenestration of arachnoid cyst. SURGEON: Alfredo Santillan M.D. STATISTICAL MACHINE MECHANIC: Piper Orozco APRN assisted with the surgery. She assisted with the exposure and the removal of the cyst using the microscope as well as a closure. The operation also included fluoroscopy, multimodality monitoring including EMG, SSEP, motor evoked potentials. OPERATIVE INDICATIONS: The patient is a very pleasant 65-year-old who has gradually developed weakness in her lower extremities as well as problems with gait. She notices problems on the left side more than right. She feels as though her legs may give out. She notices pain in the upper thoracic region. On imaging studies the spinal cord was compressed at the T3-T4 region from most likely a posterior arachnoid cyst, although spinal cord herniation was also a possibility. I have recommended surgery in that the natural history of this problem would be progressive worsening. She understood she did have significant medical risks, especially pulmonary and I discussed the situation with her for a considerable period. She strongly wanted to go ahead with surgery despite the risks and I agreed. DESCRIPTION OF PROCEDURE: Following general endotracheal anesthesia, the patient was positioned prone on the Benny table. The upper thoracic region was then prepped and draped in the standard fashion. TRICE hose and the impulse boots were applied for DVT prophylaxis. The microscope was draped, fluoroscopy was draped and brought into the field for monitoring. This established Ancef 2 grams, was given less than one hour prior to initiation of surgery. Using fluoroscopic guidance, an incision was made from the T2 region down to the T5 area, was taken down to skin, subcutaneous tissue and reflected the paraspinal muscles and placed self-retaining retractors. I used a high-speed air drill with a conical bur and drilled the spinous processes of partial T2, T3, T4 and partial L5. I then through the microscope using the high-speed air drill with a matchstick type bur, I thinned the bone much further and then used a 2.5 mm Kerrisons to trim each lateral gutter and peel away the lamina exposing the dura. I worked quite widely bilaterally. During this time, I obtained and maintained absolutely perfect hemostasis. I placed large cottonoids on each side of the dura with Gelfoam gently slipped into each lateral portion of the exposure again to aid with hemostasis. Through the microscope, I used an 11-blade to make a small incision in the dura and then opened superiorly and inferiorly with the angled dural guide and a 15 blade. During this time, I placed 4-0 Nurolon tacking stitches, which I secured and opened the dura and could visualize very well. There was a thickened arachnoid posterior to the spinal cord, which was kind of bulbous appearance and when I incised it, there was a sharp egress of spinal fluid and the spinal cord moved posteriorly, I peeled back and trimmed much of this material away and then also explored anteriorly beneath the spinal cord to assure that there was no spinal cord herniation issue. Once I was assured of this and I felt that the cord was very well decompressed, I closed the dura with interrupted 4-0 Nurolon. I did use a glue on the dural opening surface to seal it further. I did refill the dural cavity with saline prior to complete closure. After this then I gently removed the retractors and obtained hemostasis in the muscle. I irrigated copiously multiple times. I closed the muscle separate layer and the fascia and subcutaneous tissue. The skin was closed with mark. The patient was awakened uneventfully with normal strength in the extremities. I was quite pleased with the surgery. FRANCOISE DR: Jackson TID: [id number] SOPHY
--- NOTE | 2021-01-13 17:00 | NUR ---
Pain is better control with Percocet. Continue to use ice packs to incision site. Present time resting in bed.
--- NOTE | 2021-01-13 18:20 | NUR ---
Transferred to room 442 by bed. Report given to Joyce YANG with update.
[2021-01-13 19:00] VITALS: BP 165/61
[2021-01-13] MEDS: LEVOTHYROXINE 100 MCG TABLET PO SCH (20:24)
[2021-01-13 23:00] VITALS: BP 128/40
[2021-01-14] MEDS: POTASSIUM CL 20MEQ D5-0.45NACL 1,000 ML IV SCH ×2 (02:00→15:20)
[2021-01-14 03:00] VITALS: BP 138/64
[2021-01-14] MEDS: HYDROcodone/APAP 5/325MG 1 TAB TABLET PO PRN ×3 (05:32→18:55)
[2021-01-14 07:00] VITALS: BP 154/54
[2021-01-14] MEDS: PANTOPRAZOLE 40 MG TABLET.DR. PO SCH (07:30)
[2021-01-14] MEDS: CHOLECALCIFEROL (VITAMIN D3) 5,000 UNIT CAPSULE PO SCH (09:20)
[2021-01-14] MEDS: TORSEMIDE 20 MG TABLET. PO SCH (09:21)
[2021-01-14] MEDS: CYCLOBENZAPRINE 10 MG TABLET. PO SCH ×3 (09:21→21:23)
[2021-01-14] MEDS: CYANOCOBALAMIN (VITAMIN B-12) 1,000 MCG TABLET. PO SCH (09:21)
[2021-01-14] MEDS: DULoxetine HCL 30 MG CAPSULE.DR PO SCH ×2 (09:21→21:23)
[2021-01-14] MEDS: hydroCHLOROthiazide 12.5 MG CAPSULE PO SCH (09:21)
[2021-01-14] MEDS: LOSARTAN POTASSIUM 50 MG TABLET. PO SCH (09:22)
[2021-01-14] MEDS: DOCUSATE SODIUM 100 MG CAPSULE. PO SCH ×2 (09:22→21:23)
[2021-01-14 10:47] VITALS: BP 157/53
--- NOTE | 2021-01-14 13:11 | PDOC ---
PROGRESS NOTES Date of Service DATE: 01/14/21 TIME: 13:09 Subjective Subjective POD #2 c/o back/ incisional pain Objective Objective Vital Signs Date Time Temp Pulse Resp B/P (MAP) Pulse Ox O2 Delivery O2 Flow Rate FiO2 01/14/21 10:47 97.6 78 18 157/53 (87) 97 Room Air 97.6 01/14/21 09:50 2.0 Intake and Output 01/14/21 06:59 Intake Total 760 ml Output Total 450 ml Balance 310 ml Intake Oral 760 ml Output Urine Total 450 ml # Voids 4 Physical Exam Neuro: Other (strength 5/5 in LE) Skin: Other (dressing dry and intact) Plan Plan of Care continue PT, rehab pain control encouraged increased activity as tolerated SCDS Comment Review of Relevant I have reviewed the following items jase (where applicable) has been applied. Labs Laboratory Tests Test 01/13/21 20:11 Glucose (Fingerstick) 122 mg/dL (70-99) Laboratory Tests Test 01/13/21 20:11 Glucose (Fingerstick) 122 mg/dL (70-99) Medications Current Medications Bacitracin 16503 unit/Sodium Chloride 1,000 ml @ 1,000 mls/hr 1X ONCE IRR Last administered on 01/12/21at 10:09; Start 01/12/21 at 06:00; Stop 01/12/21 at 06:59; Status DC Fentanyl Citrate (Fentanyl 2ml Vial) 25 mcg PRN Q5MIN PRN IVP MILD PAIN 1-3; Start 01/12/21 at 06:00; Stop 01/13/21 at 05:59; Status DC Fentanyl Citrate (Fentanyl 2ml Vial) 50 mcg PRN Q5MIN PRN IVP MODERATE PAIN 4-6 Last administered on 01/12/21at 14:26; Start 01/12/21 at 06:00; Stop 01/13/21 at 05:59; Status DC Morphine Sulfate (Morphine Sulfate) 1 mg PRN Q10MIN PRN IVP SEVERE PAIN 7-10 Last administered on 01/12/21at 14:58; Start 01/12/21 at 06:00; Stop 01/13/21 at 05:59; Status DC Ringer's Solution 1,000 ml @ 30 mls/hr Q24H IV Last administered on 01/12/21at 07:55; Start 01/12/21 at 06:00; Stop 01/12/21 at 17:59; Status DC Hydromorphone HCl (Dilaudid) 0.5 mg PRN Q10MIN PRN IVP SEVERE PAIN 7-10, 2nd CHOICE Last administered on 01/12/21at 15:17; Start 01/12/21 at 06:00; Stop 01/13/21 at 05:59; Status DC Prochlorperazine Edisylate (Compazine) 5 mg PACU PRN PRN IVP NAUSEA, MRX1; Start 01/12/21 at 06:00; Stop 01/13/21 at 05:59; Status DC Cefazolin Sodium/ Dextrose 50 ml @ 100 mls/hr 1X ONCE IV Last administered on 01/12/21at 09:20; Start 01/12/21 at 06:00; Stop 01/12/21 at 06:29; Status DC Gelatin (Gelfoam Size 100) 1 each STK-MED ONCE .ROUTE Last administered on 01/12/21at 10:09; Start 01/12/21 at 07:09; Stop 01/12/21 at 07:10; Status DC Bupivacaine HCl/ Epinephrine Bitart (Sensorcain-Epi 0.5%-1:969856 Mpf) 30 ml STK-MED ONCE .ROUTE Last administered on 01/12/21at 10:09; Start 01/12/21 at 07:09; Stop 01/12/21 at 07:10; Status DC Ketorolac Tromethamine (Toradol Im) 60 mg STK-MED ONCE .ROUTE Last administered on 01/12/21at 10:09; Start 01/12/21 at 07:09; Stop 01/12/21 at 07:10; Status DC Thrombin 20,000 unit STK-MED ONCE TP Last administered on 01/12/21at 10:09; S tart 01/12/21 at 07:10; Stop 01/12/21 at 07:10; Status DC Scopolamine (Transderm-Scop) 1 patch 1X ONCE TD Last administered on 01/12/21at 07:55; Start 01/12/21 at 07:30; Stop 01/12/21 at 07:31; Status DC Propofol (Diprivan) 200 mg STK-MED ONCE IV ; Start 01/12/21 at 07:37; Stop 01/12/21 at 07:37; Status DC Propofol 50 ml @ As Directed STK-MED ONCE IV ; Start 01/12/21 at 07:37; Stop 01/12/21 at 07:37; Status DC Fentanyl Citrate (Fentanyl 2ml Vial) 100 mcg STK-MED ONCE .ROUTE ; Start 01/12/21 at 07:37; Stop 01/12/21 at 07:37; Status DC Succinylcholine Chloride (Anectine) 200 mg STK-MED ONCE .ROUTE ; Start 01/12/21 at 07:37; Stop 01/12/21 at 07:38; Status DC Rocuronium [place] (Zemuron) 50 mg STK-MED ONCE .ROUTE ; Start 01/12/21 at 07:38; Stop 01/12/21 at 07:38; Status DC Remifentanil HCl (Ultiva) 2 mg STK-MED ONCE IV ; Start 01/12/21 at 07:38; Stop 01/12/21 at 07:39; Status DC Sodium Chloride (SODIUM CHLORIDE 20ml) 20 ml STK-MED ONCE IJ ; Start 01/12/21 at 07:40; Stop 01/12/21 at 07:40; Status DC Phenylephrine HCl (PHENYLEPHRINE in 0.9% NACL PF) 1 mg STK-MED ONCE IV ; Start 01/12/21 at 09:36; Stop 01/12/21 at 09:36; Status DC Cyanocobalamin (Vitamin B-12) 1,000 mcg DAILY PO Last administered on 01/14/21at 09:21; Start 01/13/21 at 09:00 Levothyroxine Sodium (Synthroid) 100 mcg QHS PO Last administered on 01/13/21at 20:24; Start 01/12/21 at 21:00 Non-Formulary Medication (Albuterol Sulfate (Ventolin Hfa Inhaler)) 2 puff Q4HRS INH ; Start 01/12/21 at 12:00; Status UNV Vitamin D (Vitamin D3) 5,000 unit DAILY PO Last administered on 01/14/21at 09:20; Start 01/13/21 at 09:00 Cyclobenzaprine HCl (Flexeril) 5 mg TID PO Last administered on 01/14/21at 09:21; Start 01/12/21 at 14:00 Duloxetine HCl (Cymbalta) 60 mg BID PO Last administered on 01/14/21at 09:21; Start 01/12/21 at 21:00 Pantoprazole Sodium (Protonix) 40 mg DAILYAC PO Last administered on 01/14/21at 07:30; Start 01/12/21 at 17:00 Non-Formulary Medication (Rosuvastatin Calcium (Crestor)) 20 mg HS PO ; Start 01/12/21 at 21:00; Status UNV Hydrochlorothiazide (Microzide) 12.5 mg DAILY PO Last administered on 01/14/21at 09:21; Start 01/13/21 at 09:00 Losartan Potassium (Cozaar) 100 mg DAILY PO Last administered on 01/14/21at 09:22; Start 01/12/21 at 17:00 Torsemide (Demadex) 10 mg DAILY PO Last administered on 01/14/21at 09:21; Start 01/13/21 at 09:00 Dexamethasone Sodium Phosphate (Decadron) 4 mg STK-MED ONCE .ROUTE ; Start 01/12/21 at 09:54; Stop 01/12/21 at 09:54; Status DC Albuterol Sulfate (Ventolin Neb Soln) 2.5 mg PRN Q4HRS PRN NEB SHORTNESS OF BREATH; Start 01/12/21 at 10:00 Acetaminophen (Tylenol) 650 mg PRN Q6HRS PRN PO MILD PAIN / TEMP > 100.3'F; Start 01/12/21 at 10:00 Al Hydroxide/Mg Hydroxide (Mylanta Plus Xs) 30 ml PRN Q3HRS PRN PO HEARTBURN / GAS Last administered on 01/14/21at 08:25; Start 01/12/21 at 10:00 Calcium Carbonate/ Glycine (Tums) 500 mg PRN Q3HRS PRN PO INDIGESTION; Start 01/12/21 at 10:00 Diphenhydramine HCl (Benadryl) 25 mg PRN Q6HRS PRN PO ITCHING Last administered on 01/13/21at 20:24; Start 01/12/21 at 10:00 Naloxone HCl (Narcan) 0.1 mg PRN Q2MIN PRN IV SEE COMMENTS; Start 01/12/21 at 10:00 Sodium Chloride (Normal Saline Flush) 3 ml QSHIFT PRN IV AFTER MEDS AND BLOOD DRAWS; Start 01/12/21 at 10:00 Potassium Chloride/Dextrose/ Sod Cl 1,000 ml @ 75 mls/hr [id number] IV Last ad ministered on 01/12/21at 17:14; Start 01/12/21 at 10:00 Acetaminophen/ Hydrocodone Bitart (Lortab 5/325) 1 tab PRN Q4HRS PRN PO MODERATE PAIN Last administered on 01/14/21at 09:20; Start 01/12/21 at 10:00 Acetaminophen/ Hydrocodone Bitart (Lortab 5/325) 2 tab PRN Q4HRS PRN PO SEVERE PAIN Last administered on 01/14/21at 05:32; Start 01/12/21 at 10:00 Docusate Sodium (Colace) 100 mg BID PO Last administered on 01/14/21at 09:22; Start 01/12/21 at 21:00 Magnesium Hydroxide (Milk Of Magnesia) 2,400 mg PRN Q12HR PRN PO CONSTIPATION; Start 01/12/21 at 10:00 Cefazolin Sodium (Ancef) 1 gm Q8HRS IVP Last administered on 01/12/21at 15:00; Start 01/12/21 at 14:00; Stop 01/12/21 at 15:51; Status DC Fentanyl Citrate (Fentanyl 2ml Vial) 50 mcg PRN Q2HR PRN IVP PAIN; Start 01/12/21 at 10:00 Propofol 50 ml @ As Directed STK-MED ONCE IV ; Start 01/12/21 at 10:27; Stop 01/12/21 at 10:27; Status DC Dexamethasone Sodium Phosphate (Decadron) 4 mg STK-MED ONCE .ROUTE ; Start 01/12/21 at 10:40; Stop 01/12/21 at 10:40; Status DC Ondansetron HCl (Zofran) 4 mg STK-MED ONCE .ROUTE ; Start 01/12/21 at 11:49; Stop 01/12/21 at 11:50; Status DC Remifentanil HCl (Ultiva) 1 mg STK-MED ONCE IV ; Start 01/12/21 at 12:28; Stop 01/12/21 at 12:28; Status DC Cefazolin Sodium/ Dextrose (Ancef 2gm Premix) 2 gm STK-MED ONCE IV ; Start 01/12/21 at 08:00; Stop 01/12/21 at 13:01; Status DC Fentanyl Citrate (Fentanyl 2ml Vial) 100 mcg STK-MED ONCE .ROUTE ; Start 01/12/21 at 14:19; Stop 01/12/21 at 14:19; Status DC Morphine Sulfate (Morphine Sulfate) 2 mg STK-MED ONCE .ROUTE ; Start 01/12/21 at 14:43; Stop 01/12/21 at 14:43; Status DC Hydromorphone HCl (Dilaudid) 2 mg STK-MED ONCE .ROUTE ; Start 01/12/21 at 15:15; Stop 01/12/21 at 15:16; Status DC Cefazolin Sodium (Ancef) 1 gm Q8H IVP Last administered on 01/13/21at 08:29; Start 01/12/21 at 17:00; Stop 01/13/21 at 09:01; Status DC Cefazolin Sodium (Ancef) 1 gm STK-MED ONCE IVP ; Start 01/12/21 at 13:35; Stop 01/12/21 at 15:51; Status DC Cefazolin Sodium (Ancef) 1 gm STK-MED ONCE IVP ; Start 01/12/21 at 12:58; Stop 01/12/21 at 15:51; Status DC Oxycodone/ Acetaminophen (Percocet 7.5/ 325) 1 tab PRN Q4HRS PRN PO SEVERE PAIN- 2ND CHOICE Last administered on 01/13/21at 20:23; Start 01/13/21 at 12:15 Active Scripts Active Reported Protonix (Pantoprazole Sodium) 20 Mg Tablet.dr 1 Tab PO DAILY Cyclobenzaprine Hcl 5 Mg Tablet 5 Mg PO TID Olmesartan-Hctz 40-12.5 mg Tab (Olmesartan/Hydrochlorothiazide) 1 Each Tablet Unknown Dose PO Torsemide 10 Mg Tablet 10 Mg PO Cymbalta (Duloxetine Hcl) 60 Mg Capsule.dr 60 Mg PO BID Crestor (Rosuvastatin Calcium) 40 Mg Tablet 20 Mg PO HS Stool Softener (Docusate Sodium) 100 Mg Capsule 100 Mg PO PRN PRN Last dose taken today 09 am Vitamin B-12 (Cyanocobalamin (Vitamin B-12)) 1,000 Mcg Tablet 1 Tab PO DAILY Next dose tomorrow 08/08/16 in am Ventolin Hfa Inhaler (Albuterol Sulfate) 18 Gm Hfa.aer.ad 2 Puff INH Q4HRS Resume prior to hospital stay Vitamin D3 (Cholecalciferol (Vitamin D3)) 5,000 Unit Tablet 1 Tab PO DAILY Next dose tomorrow 08/08/16 in am Levothyroxine Sodium 100 Mcg Tablet 1 Tab PO DAILY Next dose tomorrow 08/08/16 in am Vitals/I & O Vital Sign - Last 24 Hours 01/13/21 01/13/21 01/13/21 01/13/21 14:09 15:13 15:19 19:00 Temp 97.8 98.2 97.8 98.2 Pulse 76 77 Resp 18 18 B/P (MAP) 126/52 (76) 165/61 (95) Pulse Ox 94 94 O2 Delivery Nasal Cannula Room Air Room Air Room Air O2 Flow Rate 2.0 01/13/21 01/13/21 01/13/21 01/13/21 20:00 20:23 20:53 23:00 Temp 98.0 98.0 Pulse 83 Resp 18 B/P (MAP) 128/40 (69) Pulse Ox 94 94 90 O2 Delivery Room Air Room Air Room Air Room Air O2 Flow Rate 2.0 2.0 2.0 01/14/21 01/14/21 01/14/21 01/14/21 03:00 05:32 06:00 07:00 Temp 98.0 97.7 98.0 97.7 Pulse 71 81 Resp 18 18 B/P (MAP) 138/64 (88) 154/54 (87) Pulse Ox 93 93 93 90 O2 Delivery Room Air Room Air Room Air Room Air O2 Flow Rate 2.0 2.0 01/14/21 01/14/21 01/14/21 01/14/21 08:00 09:20 09:22 09:50 Pulse 81 Resp 18 18 B/P (MAP) 154/54 Pulse Ox 90 90 O2 Delivery Room Air Room Air Room Air O2 Flow Rate 2.0 2.0 2.0 01/14/21 10:47 Temp 97.6 97.6 Pulse 78 Resp 18 B/P (MAP) 157/53 (87) Pulse Ox 97 O2 Delivery Room Air Intake and Output 01/13/21 01/13/21 01/14/21 14:59 22:59 06:59 Intake Total 540 ml 120 ml 100 ml Output Total 450 ml Balance 90 ml 120 ml 100 ml Justifications for Admission Other Justification ASHLEY BAÑUEOLS MD Jan 14, 2021 13:11
[2021-01-14 14:52] VITALS: BP 142/51
--- NOTE | 2021-01-14 15:36 | NUR ---
D 5 / not administered, Patient with Saline Lock IV present in right hand, eating and drinking well.
[2021-01-14 19:00] VITALS: BP 144/84
[2021-01-14] MEDS: LEVOTHYROXINE 100 MCG TABLET PO SCH (21:23)
[2021-01-14 23:00] VITALS: BP 152/61
[2021-01-15 03:00] VITALS: BP 152/65
[2021-01-15 07:00] VITALS: BP 112/58
[2021-01-15] MEDS: CHOLECALCIFEROL (VITAMIN D3) 5,000 UNIT CAPSULE PO SCH (08:28)
[2021-01-15] MEDS: PANTOPRAZOLE 40 MG TABLET.DR. PO SCH (08:28)
[2021-01-15] MEDS: HYDROcodone/APAP 5/325MG 1 TAB TABLET PO PRN (08:28)
[2021-01-15] MEDS: DOCUSATE SODIUM 100 MG CAPSULE. PO SCH ×2 (08:28→22:34)
[2021-01-15] MEDS: CYANOCOBALAMIN (VITAMIN B-12) 1,000 MCG TABLET. PO SCH (08:28)
[2021-01-15] MEDS: DULoxetine HCL 30 MG CAPSULE.DR PO SCH ×2 (08:28→22:34)
[2021-01-15] MEDS: hydroCHLOROthiazide 12.5 MG CAPSULE PO SCH (08:28)
[2021-01-15] MEDS: LOSARTAN POTASSIUM 50 MG TABLET. PO SCH (08:29)
[2021-01-15] MEDS: CYCLOBENZAPRINE 10 MG TABLET. PO SCH ×3 (08:30→22:34)
[2021-01-15] MEDS: TORSEMIDE 20 MG TABLET. PO SCH (08:30)
[2021-01-15 10:38] VITALS: BP 126/46
[2021-01-15 14:36] VITALS: BP 137/61
--- NOTE | 2021-01-15 14:50 | PDOC ---
PROGRESS NOTES Date of Service DATE: 01/15/21 TIME: 14:48 Subjective Subjective POD #3 C/o back / incisional pain Objective Objective Vital Signs Date Time Temp Pulse Resp B/P (MAP) Pulse Ox O2 Delivery O2 Flow Rate FiO2 01/15/21 14:36 98.7 84 18 137/61 (86) 94 Nasal Cannula 2.0 98.7 Intake and Output 01/15/21 07:00 Output Total 450 ml Balance -450 ml Output Urine Total 450 ml # Voids 2 Physical Exam General: Alert, Oriented X3, Cooperative MUSCULOSKELETAL: Other (FAITH) Skin: Other (dressing dry and intact) Plan Plan of Care continue PT encouraged increased activity as tolerated may need rehab Dr. Mcdonald consulted Comment Review of Relevant I have reviewed the following items jase (where applicable) has been applied. Labs Laboratory Tests Test 01/13/21 20:11 01/14/21 16:09 01/14/21 19:43 01/15/21 07:05 Glucose (Fingerstick) 122 mg/dL (70-99) 117 mg/dL (70-99) 120 mg/dL (70-99) 111 mg/dL (70-99) Test 01/15/21 11:05 Glucose (Fingerstick) 118 mg/dL (70-99) Laboratory Tests Test 01/14/21 16:09 01/14/21 19:43 01/15/21 07:05 01/15/21 11:05 Glucose (Fingerstick) 117 mg/dL (70-99) 120 mg/dL (70-99) 111 mg/dL (70-99) 118 mg/dL (70-99) Medications Current Medications Bacitracin 04029 unit/Sodium Chloride 1,000 ml @ 1,000 mls/hr 1X ONCE IRR Last administered on 01/12/21at 10:09; Start 01/12/21 at 06:00; Stop 01/12/21 at 06:59; Status DC Fentanyl Citrate (Fentanyl 2ml Vial) 25 mcg PRN Q5MIN PRN IVP MILD PAIN 1-3; Start 01/12/21 at 06:00; Stop 01/13/21 at 05:59; Status DC Fentanyl Citrate (Fentanyl 2ml Vial) 50 mcg PRN Q5MIN PRN IVP MODERATE PAIN 4-6 Last administered on 01/12/21at 14:26; Start 01/12/21 at 06:00; Stop 01/13/21 at 05:59; Status DC Morphine Sulfate (Morphine Sulfate) 1 mg PRN Q10MIN PRN IVP SEVERE PAIN 7-10 Last administered on 01/12/21at 14:58; Start 01/12/21 at 06:00; Stop 01/13/21 at 05:59; Status DC Ringer's Solution 1,000 ml @ 30 mls/hr Q24H IV Last administered on 01/12/21at 07:55; Start 01/12/21 at 06:00; Stop 01/12/21 at 17:59; Status DC Hydromorphone HCl (Dilaudid) 0.5 mg PRN Q10MIN PRN IVP SEVERE PAIN 7-10, 2nd CHOICE Last administered on 01/12/21at 15:17; Start 01/12/21 at 06:00; Stop 01/13/21 at 05:59; Status DC Prochlorperazine Edisylate (Compazine) 5 mg PACU PRN PRN IVP NAUSEA, MRX1; Start 01/12/21 at 06:00; Stop 01/13/21 at 05:59; Status DC Cefazolin Sodium/ Dextrose 50 ml @ 100 mls/hr 1X ONCE IV Last administered on 01/12/21at 09:20; Start 01/12/21 at 06:00; Stop 01/12/21 at 06:29; Status DC Gelatin (Gelfoam Size 100) 1 each STK-MED ONCE .ROUTE Last administered on 01/12/21at 10:09; Start 01/12/21 at 07:09; Stop 01/12/21 at 07:10; Status DC Bupivacaine HCl/ Epinephrine Bitart (Sensorcain-Epi 0.5%-1:278743 Mpf) 30 ml STK-MED ONCE .ROUTE Last administered on 01/12/21at 10:09; Start 01/12/21 at 07:09; Stop 01/12/21 at 07:10; Status DC Ketorolac Tromethamine (Toradol Im) 60 mg STK-MED ONCE .ROUTE Last administered on 01/12/21at 10:09; Start 01/12/21 at 07:09; Stop 01/12/21 at 07:10; Status DC Thrombin 20,000 unit STK-MED ONCE TP Last administered on 01/12/21at 10:09; Start 01/12/21 at 07:10; Stop 01/12/21 at 07:10; Status DC Scopolamine (Transderm-Scop) 1 patch 1X ONCE TD Last administered on 01/12/21at 07:55; Start 01/12/21 at 07:30; Stop 01/12/21 at 07:31; Status DC Propofol (Diprivan) 200 mg STK-MED ONCE IV ; Start 01/12/21 at 07:37; Stop 01/12/21 at 07:37; Status DC Propofol 50 ml @ As Directed STK-MED ONCE IV ; Start 01/12/21 at 07:37; Stop 01/12/21 at 07:37; Status DC Fentanyl Citrate (Fentanyl 2ml Vial) 100 mcg STK-MED ONCE .ROUTE ; Start 01/12/21 at 07:37; Stop 01/12/21 at 07:37; Status DC Succinylcholine Chloride (Anectine) 200 mg STK-MED ONCE .ROUTE ; Start 01/12/21 at 07:37; Stop 01/12/21 at 07:38; Status DC Rocuronium [place] (Zemuron) 50 mg STK-MED ONCE .ROUTE ; Start 01/12/21 at 07: 38; Stop 01/12/21 at 07:38; Status DC Remifentanil HCl (Ultiva) 2 mg STK-MED ONCE IV ; Start 01/12/21 at 07:38; Stop 01/12/21 at 07:39; Status DC Sodium Chloride (SODIUM CHLORIDE 20ml) 20 ml STK-MED ONCE IJ ; Start 01/12/21 at 07:40; Stop 01/12/21 at 07:40; Status DC Phenylephrine HCl (PHENYLEPHRINE in 0.9% NACL PF) 1 mg STK-MED ONCE IV ; Start 01/12/21 at 09:36; Stop 01/12/21 at 09:36; Status DC Cyanocobalamin (Vitamin B-12) 1,000 mcg DAILY PO Last administered on 01/15/21at 08:28; Start 01/13/21 at 09:00 Levothyroxine Sodium (Synthroid) 100 mcg QHS PO Last administered on 01/14/21at 21:23; Start 01/12/21 at 21:00 Non-Formulary Medication (Albuterol Sulfate (Ventolin Hfa Inhaler)) 2 puff Q4HRS INH ; Start 01/12/21 at 12:00; Status UNV Vitamin D (Vitamin D3) 5,000 unit DAILY PO Last administered on 01/15/21 08:28; Start 01/13/21 at 09:00 Cyclobenzaprine HCl (Flexeril) 5 mg TID PO Last administered on 01/15/21 14:16; Start 01/12/21 at 14:00 Duloxetine HCl (Cymbalta) 60 mg BID PO Last administered on 01/15/21 08:28; Start 01/12/21 at 21:00 Pantoprazole Sodium (Protonix) 40 mg DAILYAC PO Last administered on 01/15/21 08:28; Start 01/12/21 at 17:00 Non-Formulary Medication (Rosuvastatin Calcium (Crestor)) 20 mg HS PO ; Start 01/12/21 at 21:00; Status UNV Hydrochlorothiazide (Microzide) 12.5 mg DAILY PO Last administered on 01/15/21 08:28; Start 01/13/21 at 09:00 Losartan Potassium (Cozaar) 100 mg DAILY PO Last administered on 01/15/21 08:29; Start 01/12/21 at 17:00 Torsemide (Demadex) 10 mg DAILY PO Last administered on 01/15/21 08:30; Start 01/13/21 at 09:00 Dexamethasone Sodium Phosphate (Decadron) 4 mg STK-MED ONCE .ROUTE ; Start 01/12/21 at 09:54; Stop 01/12/21 at 09:54; Status DC Albuterol Sulfate (Ventolin Neb Soln) 2.5 mg PRN Q4HRS PRN NEB SHORTNESS OF BREATH; Start 01/12/21 at 10:00 Acetaminophen (Tylenol) 650 mg PRN Q6HRS PRN PO MILD PAIN / TEMP > 100.3'F; St art 01/12/21 at 10:00 Al Hydroxide/Mg Hydroxide (Mylanta Plus Xs) 30 ml PRN Q3HRS PRN PO HEARTBURN / GAS Last administered on 01/14/21 08:25; Start 01/12/21 at 10:00 Calcium Carbonate/ Glycine (Tums) 500 mg PRN Q3HRS PRN PO INDIGESTION; Start 01/12/21 at 10:00 Diphenhydramine HCl (Benadryl) 25 mg PRN Q6HRS PRN PO ITCHING Last administered on 01/13/21at 20:24; Start 01/12/21 at 10:00 Naloxone HCl (Narcan) 0.1 mg PRN Q2MIN PRN IV SEE COMMENTS; Start 01/12/21 at 10:00 Sodium Chloride (Normal Saline Flush) 3 ml QSHIFT PRN IV AFTER MEDS AND BLOOD DRAWS; Start 01/12/21 at 10:00 Potassium Chloride/Dextrose/ Sod Cl 1,000 ml @ 75 mls/hr [id number] IV Last administered on 01/12/21at 17:14; Start 01/12/21 at 10:00; Stop 01/15/21 at 04:59; Status DC Acetaminophen/ Hydrocodone Bitart (Lortab 5/325) 1 tab PRN Q4HRS PRN PO MODERATE PAIN Last administered on 01/14/21at 18:55; Start 01/12/21 at 10:00 Acetaminophen/ Hydrocodone Bitart (Lortab 5/325) 2 tab PRN Q4HRS PRN PO SEVERE PAIN Last administered on 01/15/21at 08:28; Start 01/12/21 at 10:00 Docusate Sodium (Colace) 100 mg BID PO Last administered on 01/15/21at 08:28; Start 01/12/21 at 21:00 Magnesium Hydroxide (Milk Of Magnesia) 2,400 mg PRN Q12HR PRN PO CONSTIPATION; Start 01/12/21 at 10:00 Cefazolin Sodium (Ancef) 1 gm Q8HRS IVP Last administered on 01/12/21at 15:00; Start 01/12/21 at 14:00; Stop 01/12/21 at 15:51; Status DC Fentanyl Citrate (Fentanyl 2ml Vial) 50 mcg PRN Q2HR PRN IVP PAIN; Start 01/12/21 at 10:00 Propofol 50 ml @ As Directed STK-MED ONCE IV ; Start 01/12/21 at 10:27; Stop 01/12/21 at 10:27; Status DC Dexamethasone Sodium Phosphate (Decadron) 4 mg STK-MED ONCE .ROUTE ; Start 01/12/21 at 10:40; Stop 01/12/21 at 10:40; Status DC Ondansetron HCl (Zofran) 4 mg STK-MED ONCE .ROUTE ; Start 01/12/21 at 11:49; Stop 01/12/21 at 11:50; Status DC Remifentanil HCl (Ultiva) 1 mg STK-MED ONCE IV ; Start 01/12/21 at 12:28; Stop 01/12/21 at 12:28; Status DC Cefazolin Sodium/ Dextrose (Ancef 2gm Premix) 2 gm STK-MED ONCE IV ; Start 01/12/21 at 08:00; Stop 01/12/21 at 13:01; Status DC Fentanyl Citrate (Fentanyl 2ml Vial) 100 mcg STK-MED ONCE .ROUTE ; Start 01/12/21 at 14:19; Stop 01/12/21 at 14:19; Status DC Morphine Sulfate (Morphine Sulfate) 2 mg STK-MED ONCE .ROUTE ; Start 01/12/21 at 14:43; Stop 01/12/21 at 14:43; Status DC Hydromorphone HCl (Dilaudid) 2 mg STK-MED ONCE .ROUTE ; Start 01/12/21 at 15:15; Stop 01/12/21 at 15:16; Status DC Cefazolin Sodium (Ancef) 1 gm Q8H IVP Last administered on 01/13/21at 08:29; Start 01/12/21 at 17:00; Stop 01/13/21 at 09:01; Status DC Cefazolin Sodium (Ancef) 1 gm STK-MED ONCE IVP ; Start 01/12/21 at 13:35; Stop 01/12/21 at 15:51; Status DC Cefazolin Sodium (Ancef) 1 gm STK-MED ONCE IVP ; Start 01/12/21 at 12:58; Stop 01/12/21 at 15:51; Status DC Oxycodone/ Acetaminophen (Percocet 7.5/ 325) 1 tab PRN Q4HRS PRN PO SEVERE PAIN- 2ND CHOICE Last administered on 01/13/21at 20:23; Start 01/13/21 at 12:15 Active Scripts Active Reported Protonix (Pantoprazole Sodium) 20 Mg Tablet.dr 1 Tab PO DAILY Cyclobenzaprine Hcl 5 Mg Tablet 5 Mg PO TID Olmesartan-Hctz 40-12.5 mg Tab (Olmesartan/Hydrochlorothiazide) 1 Each Tablet Unknown Dose PO Torsemide 10 Mg Tablet 10 Mg PO Cymbalta (Duloxetine Hcl) 60 Mg Capsule.dr 60 Mg PO BID Crestor (Rosuvastatin Calcium) 40 Mg Tablet 20 Mg PO HS Stool Softener (Docusate Sodium) 100 Mg Capsule 100 Mg PO PRN PRN Last dose taken today 09 am Vitamin B-12 (Cyanocobalamin (Vitamin B-12)) 1,000 Mcg Tablet 1 Tab PO DAILY Next dose tomorrow 08/08/16 in am Ventolin Hfa Inhaler (Albuterol Sulfate) 18 Gm Hfa.aer.ad 2 Puff INH Q4HRS Resume prior to hospital stay Vitamin D3 (Cholecalciferol (Vitamin D3)) 5,000 Unit Tablet 1 Tab PO DAILY Next dose tomorrow 08/08/16 in am Levothyroxine Sodium 100 Mcg Tablet 1 Tab PO DAILY Next dose tomorrow 08/08/16 in am Vitals/I & O Vital Sign - Last 24 Hours 01/14/21 01/14/21 01/14/21 01/14/21 14:52 14:52 18:55 19:00 Temp 97.7 98.6 97.7 98.6 Pulse 81 76 Resp 18 16 18 B/P (MAP) 142/51 (81) 144/84 (104) Pulse Ox 92 92 96 O2 Delivery Room Air Nasal Cannula Room Air Nasal Cannula O2 Flow Rate 3.0 3.0 3.0 01/14/21 01/14/21 01/14/21 01/15/21 19:25 20:59 23:00 03:00 Temp 98.4 98.2 98.4 98.2 Pulse 73 81 Resp 20 18 18 B/P (MAP) 152/61 (91) 152/65 (94) Pulse Ox 97 91 O2 Delivery Nasal Cannula Nasal Cannula Nasal Cannula Nasal Cannula O2 Flow Rate 2.0 2.0 3.0 3.0 01/15/21 01/15/21 01/15/21 01/15/21 07:00 08:00 08:28 08:29 Temp 98.6 98.6 Pulse 78 78 Resp 18 B/P (MAP) 112/58 (76) 112/58 Pulse Ox 92 O2 Delivery Room Air Nasal Cannula Nasal Cannula O2 Flow Rate 2.0 01/15/21 01/15/21 01/15/21 08:58 10:38 14:36 Temp 97.9 98.7 97.9 98.7 Pulse 80 84 Resp 18 18 B/P (MAP) 126/46 (72) 137/61 (86) Pulse Ox 90 94 O2 Delivery Room Air Nasal Cannula Nasal Cannula O2 Flow Rate 2.0 2.0 Intake and Output 01/14/21 01/14/21 01/15/21 15:00 23:00 07:00 Output Total 450 ml Balance -450 ml Justifications for Admission Other Justification ASHLEY BAÑUELOS MD Jan 15, 2021 14:50
[2021-01-15] MEDS: oxyCODONE/APAP 7.5/325 1 TAB TABLET PO PRN (16:22)
[2021-01-15 19:00] VITALS: BP 148/58
[2021-01-15] MEDS: LEVOTHYROXINE 100 MCG TABLET PO SCH (22:34)
[2021-01-15 23:00] VITALS: BP 122/78
[2021-01-16 03:00] VITALS: BP 109/67
[2021-01-16 07:00] VITALS: BP 126/69
[2021-01-16] MEDS: TORSEMIDE 20 MG TABLET. PO SCH (07:51)
[2021-01-16] MEDS: CYCLOBENZAPRINE 10 MG TABLET. PO SCH ×3 (07:58→20:51)
[2021-01-16] MEDS: LOSARTAN POTASSIUM 50 MG TABLET. PO SCH (07:58)
[2021-01-16] MEDS: DULoxetine HCL 30 MG CAPSULE.DR PO SCH ×2 (07:59→20:52)
[2021-01-16] MEDS: CYANOCOBALAMIN (VITAMIN B-12) 1,000 MCG TABLET. PO SCH (07:59)
[2021-01-16] MEDS: hydroCHLOROthiazide 12.5 MG CAPSULE PO SCH (07:59)
[2021-01-16] MEDS: CHOLECALCIFEROL (VITAMIN D3) 5,000 UNIT CAPSULE PO SCH (07:59)
[2021-01-16] MEDS: PANTOPRAZOLE 40 MG TABLET.DR. PO SCH (07:59)
[2021-01-16] MEDS: DOCUSATE SODIUM 100 MG CAPSULE. PO SCH ×2 (07:59→20:51)
[2021-01-16] MEDS: oxyCODONE/APAP 7.5/325 1 TAB TABLET PO PRN ×2 (08:00→20:54)
[2021-01-16] MEDS ORDERED: DOCUSATE SODIUM 283 MG/5 ML ENEMA. PR PRN (09:00)
--- NOTE | 2021-01-16 09:50 | CONS ---
DATE OF CONSULTATION: 01/16/2021 ATTENDING PHYSICIAN: Dr. Diaz. Patient was seen at the request of Dr. Santillan for rehabilitation evaluation. HISTORY OF PRESENT ILLNESS: This is a 65-year-old, having problems with upper back area pain and also numbness in her feet. The patient apparently fell several times at home. The patient was seen by Dr. Diaz, had radiological studies, which revealed moderately large arachnoid cyst at T3-T4 level with associated stenosis. The patient was admitted on 01/13/2021 and underwent thoracic laminectomy, partial T2, T3, T4 and partial T5 with intradural exploration and removal and fenestration of arachnoid cyst done on 01/13/2021. Postop, she admits continued upper back area pain. She denies any radiation of pain to the extremities. The patient denies any trouble with bladder control, but admits no bowel movement since admission and she is participating in physical therapy. The patient lives alone, had stairs to enter the house, she had a walker and cane at home. The patient is status post previous lumbar spine surgery. PAST MEDICAL HISTORY: Also includes degenerative joint disease, chronic obstructive pulmonary disease, oxygen dependent, hypertension, kidney stones, hypothyroidism, GI ulcers and carcinoma, for which she had radiation treatment. PAST SURGICAL HISTORY: She had lumbar decompression laminectomy at L4-L5 level in 07/2016 and also had thyroidectomy, carpal tunnel release on the right side, cholecystectomy, hysterectomy. ALLERGIES: KNOWN ALLERGIC TO CODEINE AND STATINS. FAMILY HISTORY: The patient had a family history of carcinoma and hypertension. She is on disability. SOCIAL HISTORY: She quit smoking after smoking for about 28 years. About 10 years ago, she quit smoking. PHYSICAL EXAMINATION: GENERAL: Today revealed a middle-aged female. She is obese. SPINE: She is in moderate distress about her upper back pain, mainly with any movement. She has diffuse tenderness to palpation over upper thoracic paraspinal muscles. She has dressing in place to upper thoracic spine area. The patient had no significant paraspinal muscle spasm. She had painful range of motion of cervical spine. EXTREMITIES: She had 5/5 grade muscle strength in her extremities and she had equal perception of touch and pinprick sensation bilaterally. Deep tendon reflexes are 1-2+ and symmetric in upper extremities, but exaggerated at both knees and 2+ at both ankles. The patient is independent with bed mobility and transfers and up walking using a roller walker. SKIN: Intact other than where she had thoracic spinal surgery. ASSESSMENT: A middle-aged female with upper back pain, status post thoracic laminectomy, partial at T2-T5 with removal and fenestration of arachnoid cyst for treatment of intraspinal thoracic arachnoid cyst with spinal cord compression and myelopathy with postop pain, continued hyperreflexia at her knees and some high level balance problems, obesity, status post previous lumbar spine surgery and also history of chronic obstructive pulmonary disease, oxygen dependent, hypertension, hypothyroidism, peptic ulcer disease, carcinoma, status post radiation treatment. RECOMMENDATIONS: Agree with the plan per physical therapy to also ask occupational therapy to see her and to ask social services director to screen, transfer to jail care unit if she feels like she needs to go, lets see how she does getting around in the next day or so. If she feels comfortable to go home with home health, to let her go home, otherwise to jail care unit hopefully by 01/18/2021. To work on her constipation to make sure she is emptying the bladder completely. To start her on Celebrex as she usually takes naproxen to help ease her pain despite having GI discomfort. Dr. Santillan, appreciate asking me to participate in the care of this interesting patient. I will be glad to see her for a followup with you on an as needed basis. RAVINDER/JAZMYN LANDA: RAVINDER/deb TID: [id number]
[2021-01-16 10:09] LABS: BASO % 0 % (0-3); EOS # 0.1 x10^3/uL (0.0-0.7); EOS % 1 % (0-3); HEMATOCRIT 38.8 % (36.0-47.0); HEMOGLOBIN 13.3 g/dL (12.0-15.5); LYMPH # 1.2 x10^3/uL (1.0-4.8); LYMPH % 13 % (24-48); MEAN CORPUSCULAR HEMOGLOBIN 32 pg (25-35); MEAN CORPUSCULAR HGB CONC 34 g/dL (31-37); MEAN CORPUSCULAR VOLUME 93 fL (79-100); MONO # 0.7 x10^3/uL (0.0-1.1); MONO % 7 % (0-9); NEUT # 7.6 x10^3/uL (1.8-7.7); NEUT % 79 % (31-73); PLATELET COUNT 296 x10^3/uL (140-400); RED BLOOD COUNT 4.19 x10^6/uL (3.50-5.40); WHITE BLOOD COUNT 9.6 x10^3/uL (4.0-11.0)
[2021-01-16 10:32] VITALS: BP 142/76
[2021-01-16 10:41] LABS: C-REACTIVE PROTEIN 19.8 mg/L (0-3.3); CALCIUM 9.4 mg/dL (8.5-10.1); GFR 55.8; POTASSIUM 4.1 mmol/L (3.5-5.1)
[2021-01-16] MEDS: SENNOSIDES/DOCUSATE 8.6/50MG TABLET. PO SCH ×2 (12:24→20:52)
[2021-01-16] MEDS: CELECOXIB 100 MG CAPSULE. PO SCH ×2 (12:25→20:51)
[2021-01-16] MEDS: BISACODYL 5 MG TABLET.DR. PO SCH (12:25)
[2021-01-16 14:27] VITALS: BP 123/59
[2021-01-16 19:00] VITALS: BP 143/40
[2021-01-16] MEDS: LEVOTHYROXINE 100 MCG TABLET PO SCH (20:52)
[2021-01-16 23:00] VITALS: BP 118/56
[2021-01-17] MEDS: oxyCODONE/APAP 7.5/325 1 TAB TABLET PO PRN ×4 (02:49→21:32)
[2021-01-17 03:00] VITALS: BP 143/61
[2021-01-17] MEDS: PANTOPRAZOLE 40 MG TABLET.DR. PO SCH (06:32)
[2021-01-17 07:00] VITALS: BP 119/53
--- NOTE | 2021-01-17 08:25 | PDOC ---
PROGRESS NOTES Date of Service DATE: 01/17/21 TIME: 08:19 Subjective Subjective She still admits uper back pain and remains constipated. Objective Objective Vital Signs Date Time Temp Pulse Resp B/P (MAP) Pulse Ox O2 Delivery O2 Flow Rate FiO2 01/17/21 07:00 97.8 67 18 119/53 (75) 98 Nasal Cannula 2.0 97.8 Intake and Output 01/17/21 07:00 # Voids 2 Physical Exam Physical Exam She is alert,sitting at edge of bed and eating breakfast and she had dressing in place to upper thoracic spine and diffuse tenderness to palpation over adjoining paraspinal muscles and continues with pain while rolling in bed and with transfers but she is walking with roller walker up to 125' with physical therapy. She is emptying her bladder. Plan Plan of Care To continue present rehab efforts and home after she had a bowel movement with home health follow up. Comment Review of Relevant I have reviewed the following items jase (where applicable) has been applied. Labs Laboratory Tests Test 01/15/21 11:05 01/15/21 16:01 01/15/21 19:14 01/16/21 07:04 Glucose (Fingerstick) 118 mg/dL (70-99) 96 mg/dL (70-99) 155 mg/dL (70-99) 117 mg/dL (70-99) Test 01/16/21 09:25 01/16/21 10:56 01/16/21 16:12 01/16/21 20:43 White Blood Count 9.6 x10^3/uL (4.0-11.0) Red Blood Count 4.19 x10^6/uL (3.50-5.40) Hemoglobin 13.3 g/dL (12.0-15.5) Hematocrit 38.8 % (36.0-47.0) Mean Corpuscular Volume 93 fL (79-100) Mean Corpuscular Hemoglobin 32 pg (25-35) Mean Corpuscular Hemoglobin Concent 34 g/dL (31-37) Red Cell Distribution Width 13.0 % (11.5-14.5) Platelet Count 296 x10^3/uL (140-400) Neutrophils (%) (Auto) 79 % (31-73) Lymphocytes (%) (Auto) 13 % (24-48) Monocytes (%) (Auto) 7 % (0-9) Eosinophils (%) (Auto) 1 % (0-3) Basophils (%) (Auto) 0 % (0-3) Neutrophils # (Auto) 7.6 x10^3/uL (1.8-7.7) Lymphocytes # (Auto) 1.2 x10^3/uL (1.0-4.8) Monocytes # (Auto) 0.7 x10^3/uL (0.0-1.1) Eosinophils # (Auto) 0.1 x10^3/uL (0.0-0.7) Basophils # (Auto) 0.0 x10^3/uL (0.0-0.2) Sodium Level 140 mmol/L (136-145) Potassium Level 4.1 mmol/L (3.5-5.1) Chloride Level 97 mmol/L (98-107) Carbon Dioxide Level 34 mmol/L (21-32) Anion Gap 9 (6-14) Blood Urea Nitrogen 18 mg/dL (7-20) Creatinine 1.0 mg/dL (0.6-1.0) Estimated GFR (Cockcroft-Gault) 55.8 Glucose Level 143 mg/dL (70-99) Calcium Level 9.4 mg/dL (8.5-10.1) C-Reactive Protein, Quantitative 19.8 mg/L (0-3.3) Glucose (Fingerstick) 143 mg/dL (70-99) 124 mg/dL (70-99) 148 mg/dL (70-99) Test 01/17/21 07:38 Glucose (Fingerstick) 124 mg/dL (70-99) Laboratory Tests Test 01/16/21 09:25 01/16/21 10:56 01/16/21 16:12 01/16/21 20:43 White Blood Count 9.6 x10^3/uL (4.0-11.0) Red Blood Count 4.19 x10^6/uL (3.50-5.40) Hemoglobin 13.3 g/dL (12.0-15.5) Hematocrit 38.8 % (36.0-47.0) Mean Corpuscular Volume 93 fL (79-100) Mean Corpuscular Hemoglobin 32 pg (25-35) Mean Corpuscular Hemoglobin Concent 34 g/dL (31-37) Red Cell Distribution Width 13.0 % (11.5-14.5) Platelet Count 296 x10^3/uL (140-400) Neutrophils (%) (Auto) 79 % (31-73) Lymphocytes (%) (Auto) 13 % (24-48) Monocytes (%) (Auto) 7 % (0-9) Eosinophils (%) (Auto) 1 % (0-3) Basophils (%) (Auto) 0 % (0-3) Neutrophils # (Auto) 7.6 x10^3/uL (1.8-7.7) Lymphocytes # (Auto) 1.2 x10^3/uL (1.0-4.8) Monocytes # (Auto) 0.7 x10^3/uL (0.0-1.1) Eosinophils # (Auto) 0.1 x10^3/uL (0.0-0.7) Basophils # (Auto) 0.0 x10^3/uL (0.0-0.2) Sodium Level 140 mmol/L (136-145) Potassium Level 4.1 mmol/L (3.5-5.1) Chloride Level 97 mmol/L (98-107) Carbon Dioxide Level 34 mmol/L (21-32) Anion Gap 9 (6-14) Blood Urea Nitrogen 18 mg/dL (7-20) Creatinine 1.0 mg/dL (0.6-1.0) Estimated GFR (Cockcroft-Gault) 55.8 Glucose Level 143 mg/dL (70-99) Calcium Level 9.4 mg/dL (8.5-10.1) C-Reactive Protein, Quantitative 19.8 mg/L (0-3.3) Glucose (Fingerstick) 143 mg/dL (70-99) 124 mg/dL (70-99) 148 mg/dL (70-99) Test 01/17/21 07:38 Glucose (Fingerstick) 124 mg/dL (70-99) Medications Current Medications Bacitracin 77627 unit/Sodium Chloride 1,000 ml @ 1,000 mls/hr 1X ONCE IRR Last administered on 01/12/21at 10:09; Start 01/12/21 at 06:00; Stop 01/12/21 at 06:59; Status DC Fentanyl Citrate (Fentanyl 2ml Vial) 25 mcg PRN Q5MIN PRN IVP MILD PAIN 1-3; Start 01/12/21 at 06:00; Stop 01/13/21 at 05:59; Status DC Fentanyl Citrate (Fentanyl 2ml Vial) 50 mcg PRN Q5MIN PRN IVP MODERATE PAIN 4-6 Last administered on 01/12/21at 14:26; Start 01/12/21 at 06:00; Stop 01/13/21 at 05:59; Status DC Morphine Sulfate (Morphine Sulfate) 1 mg PRN Q10MIN PRN IVP SEVERE PAIN 7-10 Last administered on 01/12/21at 14:58; Start 01/12/21 at 06:00; Stop 01/13/21 at 05:59; Status DC Ringer's Solution 1,000 ml @ 30 mls/hr Q24H IV Last administered on 01/12/21at 07:55; Start 01/12/21 at 06:00; Stop 01/12/21 at 17:59; Status DC Hydromorphone HCl (Dilaudid) 0.5 mg PRN Q10MIN PRN IVP SEVERE PAIN 7-10, 2nd CHOICE Last administered on 01/12/21at 15:17; Start 01/12/21 at 06:00; Stop 01/13/21 at 05:59; Status DC Prochlorperazine Edisylate (Compazine) 5 mg PACU PRN PRN IVP NAUSEA, MRX1; Start 01/12/21 at 06:00; Stop 01/13/21 at 05:59; Status DC Cefazolin Sodium/ Dextrose 50 ml @ 100 mls/hr 1X ONCE IV Last administered on 01/12/21at 09:20; Start 01/12/21 at 06:00; Stop 01/12/21 at 06:29; Status DC Gelatin (Gelfoam Size 100) 1 each STK-MED ONCE .ROUTE Last administered on 01/12/21at 10:09; Start 01/12/21 at 07:09; Stop 01/12/21 at 07:10; Status DC Bupivacaine HCl/ Epinephrine Bitart (Sensorcain-Epi 0.5%-1:709658 Mpf) 30 ml STK-MED ONCE .ROUTE Last administered on 01/12/21at 10:09; Start 01/12/21 at 07:09; Stop 01/12/21 at 07:10; Status DC Ketorolac Tromethamine (Toradol Im) 60 mg STK-MED ONCE .ROUTE Last administered on 01/12/21at 10:09; Start 01/12/21 at 07:09; Stop 01/12/21 at 07:10; Status DC Thrombin 20,000 unit STK-MED ONCE TP Last administered on 01/12/21at 10:09; Start 01/12/21 at 07:10; Stop 01/12/21 at 07:10; Status DC Scopolamine (Transderm-Scop) 1 patch 1X ONCE TD Last administered on 01/12/21at 07:55; Start 01/12/21 at 07:30; Stop 01/12/21 at 07:31; Status DC Propofol (Diprivan) 200 mg STK-MED ONCE IV ; Start 01/12/21 at 07:37; Stop 01/12/21 at 07:37; Status DC Propofol 50 ml @ As Directed STK-MED ONCE IV ; Start 01/12/21 at 07:37; Stop 01/12/21 at 07:37; Status DC Fentanyl Citrate (Fentanyl 2ml Vial) 100 mcg STK-MED ONCE .ROUTE ; Start 01/12/21 at 07:37; Stop 01/12/21 at 07:37; Status DC Succinylcholine Chloride (Anectine) 200 mg STK-MED ONCE .ROUTE ; Start 01/12/21 at 07:37; Stop 01/12/21 at 07:38; Status DC Rocuronium [place] (Zemuron) 50 mg STK-MED ONCE .ROUTE ; Start 01/12/21 at 07:38; Stop 01/12/21 at 07:38; Status DC Remifentanil HCl (Ultiva) 2 mg STK-MED ONCE IV ; Start 01/12/21 at 07:38; Stop 01/12/21 at 07:39; Status DC Sodium Chloride (SODIUM CHLORIDE 20ml) 20 ml STK-MED ONCE IJ ; Start 01/12/21 at 07:40; Stop 01/12/21 at 07:40; Status DC Phenylephrine HCl (PHENYLEPHRINE in 0.9% NACL PF) 1 mg STK-MED ONCE IV ; Start 01/12/21 at 09:36; Stop 01/12/21 at 09:36; Status DC Cyanocobalamin (Vitamin B-12) 1,000 mcg DAILY PO Last administered on 01/16/21 07:59; Start 01/13/21 at 09:00 Levothyroxine Sodium (Synthroid) 100 mcg QHS PO Last administered on 01/16/21 20:52; Start 01/12/21 at 21:00 Non-Formulary Medication (Albuterol Sulfate (Ventolin Hfa Inhaler)) 2 puff Q4HRS INH ; Start 01/12/21 at 12:00; Status UNV Vitamin D (Vitamin D3) 5,000 unit DAILY PO Last administered on 01/16/21 07:59; Start 01/13/21 at 09:00 Cyclobenzaprine HCl (Flexeril) 5 mg TID PO Last administered on 01/16/21 20:51; Start 01/12/21 at 14:00 Duloxetine HCl (Cymbalta) 60 mg BID PO Last administered on 01/16/21 20:52; Start 01/12/21 at 21:00 Pantoprazole Sodium (Protonix) 40 mg DAILYAC PO Last administered on 01/17/21 06:32; Start 01/12/21 at 17:00 Non-Formulary Medication (Rosuvastatin Calcium (Crestor)) 20 mg HS PO ; Start 01/12/21 at 21:00; Status UNV Hydrochlorothiazide (Microzide) 12.5 mg DAILY PO Last administered on 01/16/21 07:59; Start 01/13/21 at 09:00 Losartan Potassium (Cozaar) 100 mg DAILY PO Last administered on 01/16/21 07:58; Start 01/12/21 at 17:00 Torsemide (Demadex) 10 mg DAILY PO Last administered on 01/16/21 07:51; Start 01/13/21 at 09:00 Dexamethasone Sodium Phosphate (Decadron) 4 mg STK-MED ONCE .ROUTE ; Start 01/12/21 at 09:54; Stop 01/12/21 at 09:54; Status DC Albuterol Sulfate (Ventolin Neb Soln) 2.5 mg PRN Q4HRS PRN NEB SHORTNESS OF BREATH; Start 01/12/21 at 10:00 Acetaminophen (Tylenol) 650 mg PRN Q6HRS PRN PO MILD PAIN / TEMP > 100.3'F; Start 01/12/21 at 10:00 Al Hydroxide/Mg Hydroxide (Mylanta Plus Xs) 30 ml PRN Q3HRS PRN PO HEARTBURN / GAS Last administered on 01/14/21at 08:25; Start 01/12/21 at 10:00 Calcium Carbonate/ Glycine (Tums) 500 mg PRN Q3HRS PRN PO INDIGESTION; Start 01/12/21 at 10:00 Diphenhydramine HCl (Benadryl) 25 mg PRN Q6HRS PRN PO ITCHING Last administered on 01/13/21at 20:24; Start 01/12/21 at 10:00 Naloxone HCl (Narcan) 0.1 mg PRN Q2MIN PRN IV SEE COMMENTS; Start 01/12/21 at 10:00 Sodium Chloride (Normal Saline Flush) 3 ml QSHIFT PRN IV AFTER MEDS AND BLOOD DRAWS; Start 01/12/21 at 10:00 Potassium Chloride/Dextrose/ Sod Cl 1,000 ml @ 75 mls/hr [id number] IV Last administered on 01/12/21at 17:14; Start 01/12/21 at 10:00; Stop 01/15/21 at 04:59; Status DC Acetaminophen/ Hydrocodone Bitart (Lortab 5/325) 1 tab PRN Q4HRS PRN PO MODERATE PAIN Last administered on 01/14/21at 18:55; Start 01/12/21 at 10:00; Stop 01/15/21 at 14:54; Status DC Acetaminophen/ Hydrocodone Bitart (Lortab 5/325) 2 tab PRN Q4HRS PRN PO SEVERE PAIN Last administered on 01/15/21at 08:28; Start 01/12/21 at 10:00; Stop 01/15/21 at 14:54; Status DC Docusate Sodium (Colace) 100 mg BID PO Last administered on 01/16/21at 20:51; Start 01/12/21 at 21:00 Magnesium Hydroxide (Milk Of Magnesia) 2,400 mg PRN Q12HR PRN PO CONSTIPATION Last administered on 01/16/21at 08:00; Start 01/12/21 at 10:00 Cefazolin Sodium (Ancef) 1 gm Q8HRS IVP Last administered on 01/12/21at 15:00; Start 01/12/21 at 14:00; Stop 01/12/21 at 15:51; Status DC Fentanyl Citrate (Fentanyl 2ml Vial) 50 mcg PRN Q2HR PRN IVP PAIN; Start 01/12/21 at 10:00 Propofol 50 ml @ As Directed STK-MED ONCE IV ; Start 01/12/21 at 10:27; Stop 01/12/21 at 10:27; Status DC Dexamethasone Sodium Phosphate (Decadron) 4 mg STK-MED ONCE .ROUTE ; Start 01/12/21 at 10:40; Stop 01/12/21 at 10:40; Status DC Ondansetron HCl (Zofran) 4 mg STK-MED ONCE .ROUTE ; Start 01/12/21 at 11:49; Stop 01/12/21 at 11:50; Status DC Remifentanil HCl (Ultiva) 1 mg STK-MED ONCE IV ; Start 01/12/21 at 12:28; Stop 01/12/21 at 12:28; Status DC Cefazolin Sodium/ Dextrose (Ancef 2gm Premix) 2 gm STK-MED ONCE IV ; Start 01/12/21 at 08:00; Stop 01/12/21 at 13:01; Status DC Fentanyl Citrate (Fentanyl 2ml Vial) 100 mcg STK-MED ONCE .ROUTE ; Start 01/12/21 at 14:19; Stop 01/12/21 at 14:19; Status DC Morphine Sulfate (Morphine Sulfate) 2 mg STK-MED ONCE .ROUTE ; Start 01/12/21 at 14:43; Stop 01/12/21 at 14:43; Status DC Hydromorphone HCl (Dilaudid) 2 mg STK-MED ONCE .ROUTE ; Start 01/12/21 at 15:15; Stop 01/12/21 at 15:16; Status DC Cefazolin Sodium (Ancef) 1 gm Q8H IVP Last administered on 01/13/21at 08:29; St art 01/12/21 at 17:00; Stop 01/13/21 at 09:01; Status DC Cefazolin Sodium (Ancef) 1 gm STK-MED ONCE IVP ; Start 01/12/21 at 13:35; Stop 01/12/21 at 15:51; Status DC Cefazolin Sodium (Ancef) 1 gm STK-MED ONCE IVP ; Start 01/12/21 at 12:58; Stop 01/12/21 at 15:51; Status DC Oxycodone/ Acetaminophen (Percocet 7.5/ 325) 1 tab PRN Q4HRS PRN PO MODERATE PAIN Last administered on 01/15/21at 16:22; Start 01/13/21 at 12:15 Oxycodone/ Acetaminophen (Percocet 7.5/ 325) 2 tab PRN Q4HRS PRN PO SEVERE PAIN Last administered on 01/17/21at 02:49; Start 01/15/21 at 15:00 Celecoxib (CeleBREX) 200 mg BID PO Last administered on 01/16/21at 20:51; Start 01/16/21 at 09:00 Bisacodyl (Dulcolax Tab) 10 mg DAILY PO Last administered on 01/16/21at 12:25; Start 01/16/21 at 09:00 Docusate Sodium (Enemeez) 283 mg PRN DAILY PRN NM CONSTIPATION; Start 01/16/21 at 09:00 Senna/Docusate Sodium (Senna Plus) 1 tab BID PO Last administered on 01/16/21at 20:52; Start 01/16/21 at 09:00 Active Scripts Active Reported Protonix (Pantoprazole Sodium) 20 Mg Tablet.dr 1 Tab PO DAILY Cyclobenzaprine Hcl 5 Mg Tablet 5 Mg PO TID Olmesartan-Hctz 40-12.5 mg Tab (Olmesartan/Hydrochlorothiazide) 1 Each Tablet Unknown Dose PO Torsemide 10 Mg Tablet 10 Mg PO Cymbalta (Duloxetine Hcl) 60 Mg Capsule.dr 60 Mg PO BID Crestor (Rosuvastatin Calcium) 40 Mg Tablet 20 Mg PO HS Stool Softener (Docusate Sodium) 100 Mg Capsule 100 Mg PO PRN PRN Last dose taken today 09 am Vitamin B-12 (Cyanocobalamin (Vitamin B-12)) 1,000 Mcg Tablet 1 Tab PO DAILY Next dose tomorrow 08/08/16 in am Ventolin Hfa Inhaler (Albuterol Sulfate) 18 Gm Hfa.aer.ad 2 Puff INH Q4HRS Resume prior to hospital stay Vitamin D3 (Cholecalciferol (Vitamin D3)) 5,000 Unit Tablet 1 Tab PO DAILY Next dose tomorrow 08/08/16 in am Levothyroxine Sodium 100 Mcg Tablet 1 Tab PO DAILY Next dose tomorrow 08/08/16 in am Vitals/I & O Vital Sign - Last 24 Hours 01/16/21 01/16/21 01/16/21 01/16/21 08:30 10:32 14:27 19:00 Temp 98.7 97.8 98.3 98.7 97.8 98.3 Pulse 89 87 90 Resp 18 18 18 B/P (MAP) 142/76 (98) 123/59 (80) 143/40 (74) Pulse Ox 97 97 95 O2 Delivery Nasal Cannula Nasal Cannula Nasal Cannula Nasal Cannula O2 Flow Rate 2.0 2.0 2.0 2.0 01/16/21 01/16/21 01/16/21 01/16/21 19:55 20:54 21:24 23:00 Temp 98.6 98.6 Pulse 87 Resp 16 14 18 B/P (MAP) 118/56 (76) Pulse Ox 90 O2 Delivery Nasal Cannula Room Air Nasal Cannula Nasal Cannula O2 Flow Rate 2.0 2.0 2.0 01/17/21 01/17/21 01/17/21 01/17/21 02:49 03:00 03:19 07:00 Temp 97.7 97.8 97.7 97.8 Pulse 85 67 Resp 16 18 16 18 B/P (MAP) 143/61 (88) 119/53 (75) Pulse Ox 93 98 O2 Delivery Room Air Nasal Cannula Nasal Cannula Nasal Cannula O2 Flow Rate 2.0 2.0 2.0 Justifications for Admission Other Justification TREVA ACUNA MD Jan 17, 2021 08:25
[2021-01-17] MEDS: CHOLECALCIFEROL (VITAMIN D3) 5,000 UNIT CAPSULE PO SCH (08:29)
[2021-01-17] MEDS: DOCUSATE SODIUM 100 MG CAPSULE. PO SCH ×2 (08:29→21:29)
[2021-01-17] MEDS: SENNOSIDES/DOCUSATE 8.6/50MG TABLET. PO SCH ×2 (08:29→21:29)
[2021-01-17] MEDS: LOSARTAN POTASSIUM 50 MG TABLET. PO SCH (08:30)
[2021-01-17] MEDS: hydroCHLOROthiazide 12.5 MG CAPSULE PO SCH (08:30)
[2021-01-17] MEDS: TORSEMIDE 20 MG TABLET. PO SCH (08:30)
[2021-01-17] MEDS: CYCLOBENZAPRINE 10 MG TABLET. PO SCH ×3 (08:30→21:29)
[2021-01-17] MEDS: BISACODYL 5 MG TABLET.DR. PO SCH (08:31)
[2021-01-17] MEDS: CELECOXIB 100 MG CAPSULE. PO SCH ×2 (08:31→21:29)
[2021-01-17] MEDS: DULoxetine HCL 30 MG CAPSULE.DR PO SCH ×2 (08:31→21:29)
[2021-01-17] MEDS: CYANOCOBALAMIN (VITAMIN B-12) 1,000 MCG TABLET. PO SCH (08:32)
[2021-01-17 11:00] VITALS: BP 150/57
[2021-01-17 15:00] VITALS: BP 99/40
[2021-01-17 19:00] VITALS: BP 125/48
--- NOTE | 2021-01-17 20:24 | PDOC ---
Provider Note Date of Service: DATE: 01/17/21 TIME: 20:21 Provider Note patient seen and examined at 1145 POD #4 up in chair c/o back/ incisional pain ambulated today constipated dressing dry and intact FAITH Dr. Mcdonald following Plan for dc home with Home health after she has a BM Justifications for Admission Other Justification ASHLEY BAÑUELOS MD Jan 17, 2021 20:24
[2021-01-17] MEDS: LEVOTHYROXINE 100 MCG TABLET PO SCH (21:30)
[2021-01-17 23:00] VITALS: BP 123/46
[2021-01-18 03:00] VITALS: BP 113/42
[2021-01-18 07:00] VITALS: BP 160/73
--- NOTE | 2021-01-18 09:29 | PDOC ---
PROGRESS NOTES Date of Service DATE: 01/18/21 TIME: 09:26 Subjective Subjective Still admits pain with transfers. Objective Objective Vital Signs Date Time Temp Pulse Resp B/P (MAP) Pulse Ox O2 Delivery O2 Flow Rate FiO2 01/18/21 07:00 97.7 65 20 160/73 (102) 90 Nasal Cannula 2.0 97.7 Intake and Output 01/18/21 07:00 Intake Total 200 ml Balance 200 ml Intake Oral 200 ml # Voids 2 # Bowel Movements 1 Physical Exam Physical Exam She is alert,and using oxygen by nasal canula and is independent with bed mobility,transfers and walking with roller walker and she had a bowel movement with enema yesterday. Plan [facility] of [facility] with home health follow up after physical therapy works on stairs management. Comment Review of Relevant I have reviewed the following items jase (where applicable) has been applied. Labs Laboratory Tests Test 01/16/21 10:56 01/16/21 16:12 01/16/21 20:43 01/17/21 07:38 Glucose (Fingerstick) 143 mg/dL (70-99) 124 mg/dL (70-99) 148 mg/dL (70-99) 124 mg/dL (70-99) Test 01/17/21 11:43 01/17/21 16:40 01/17/21 20:50 01/18/21 08:22 Glucose (Fingerstick) 179 mg/dL (70-99) 104 mg/dL (70-99) 131 mg/dL (70-99) 135 mg/dL (70-99) Laboratory Tests Test 01/17/21 11:43 01/17/21 16:40 01/17/21 20:50 01/18/21 08:22 Glucose (Fingerstick) 179 mg/dL (70-99) 104 mg/dL (70-99) 131 mg/dL (70-99) 135 mg/dL (70-99) Medications Current Medications Bacitracin 56475 unit/Sodium Chloride 1,000 ml @ 1,000 mls/hr 1X ONCE IRR Last administered on 01/12/21at 10:09; Start 01/12/21 at 06:00; Stop 01/12/21 at 06:59; Status DC Fentanyl Citrate (Fentanyl 2ml Vial) 25 mcg PRN Q5MIN PRN IVP MILD PAIN 1-3; Start 01/12/21 at 06:00; Stop 01/13/21 at 05:59; Status DC Fentanyl Citrate (Fentanyl 2ml Vial) 50 mcg PRN Q5MIN PRN IVP MODERATE PAIN 4-6 Last administered on 01/12/21at 14:26; Start 01/12/21 at 06:00; Stop 01/13/21 at 05:59; Status DC Morphine Sulfate (Morphine Sulfate) 1 mg PRN Q10MIN PRN IVP SEVERE PAIN 7-10 Last administered on 01/12/21at 14:58; Start 01/12/21 at 06:00; Stop 01/13/21 at 05:59; Status DC Ringer's Solution 1,000 ml @ 30 mls/hr Q24H IV Last administered on 01/12/21at 07:55; Start 01/12/21 at 06:00; Stop 01/12/21 at 17:59; Status DC Hydromorphone HCl (Dilaudid) 0.5 mg PRN Q10MIN PRN IVP SEVERE PAIN 7-10, 2nd CHOICE Last administered on 01/12/21at 15:17; Start 01/12/21 at 06:00; Stop 01/13/21 at 05:59; Status DC Prochlorperazine Edisylate (Compazine) 5 mg PACU PRN PRN IVP NAUSEA, MRX1; Start 01/12/21 at 06:00; Stop 01/13/21 at 05:59; Status DC Cefazolin Sodium/ Dextrose 50 ml @ 100 mls/hr 1X ONCE IV Last administered on 01/12/21at 09:20; Start 01/12/21 at 06:00; Stop 01/12/21 at 06:29; Status DC Gelatin (Gelfoam Size 100) 1 each STK-MED ONCE .ROUTE Last administered on 01/12/21at 10:09; Start 01/12/21 at 07:09; Stop 01/12/21 at 07:10; Status DC Bupivacaine HCl/ Epinephrine Bitart (Sensorcain-Epi 0.5%-1:508994 Mpf) 30 ml STK-MED ONCE .ROUTE Last administered on 01/12/21at 10:09; Start 01/12/21 at 07:09; Stop 01/12/21 at 07:10; Status DC Ketorolac Tromethamine (Toradol Im) 60 mg STK-MED ONCE .ROUTE Last administered on 01/12/21at 10:09; Start 01/12/21 at 07:09; Stop 01/12/21 at 07:10; Status DC Thrombin 20,000 unit STK-MED ONCE TP Last administered on 01/12/21at 10:09; Start 01/12/21 at 07:10; Stop 01/12/21 at 07:10; Status DC Scopolamine (Transderm-Scop) 1 patch 1X ONCE TD Last administered on 01/12/21at 07:55; Start 01/12/21 at 07:30; Stop 01/12/21 at 07:31; Status DC Propofol (Diprivan) 200 mg STK-MED ONCE IV ; Start 01/12/21 at 07:37; Stop 01/12/21 at 07:37; Status DC Propofol 50 ml @ As Directed STK-MED ONCE IV ; Start 01/12/21 at 07:37; Stop 01/12/21 at 07:37; Status DC Fentanyl Citrate (Fentanyl 2ml Vial) 100 mcg STK-MED ONCE .ROUTE ; Start 01/12/21 at 07:37; Stop 01/12/21 at 07:37; Status DC Succinylcholine Chloride (Anectine) 200 mg STK-MED ONCE .ROUTE ; Start 01/12/21 at 07:37; Stop 01/12/21 at 07:38; Status DC Rocuronium [place] (Zemuron) 50 mg STK-MED ONCE .ROUTE ; Start 01/12/21 at 07: 38; Stop 01/12/21 at 07:38; Status DC Remifentanil HCl (Ultiva) 2 mg STK-MED ONCE IV ; Start 01/12/21 at 07:38; Stop 01/12/21 at 07:39; Status DC Sodium Chloride (SODIUM CHLORIDE 20ml) 20 ml STK-MED ONCE IJ ; Start 01/12/21 at 07:40; Stop 01/12/21 at 07:40; Status DC Phenylephrine HCl (PHENYLEPHRINE in 0.9% NACL PF) 1 mg STK-MED ONCE IV ; Start 01/12/21 at 09:36; Stop 01/12/21 at 09:36; Status DC Cyanocobalamin (Vitamin B-12) 1,000 mcg DAILY PO Last administered on 01/17/21 08:32; Start 01/13/21 at 09:00 Levothyroxine Sodium (Synthroid) 100 mcg QHS PO Last administered on 01/17/21 21:30; Start 01/12/21 at 21:00 Non-Formulary Medication (Albuterol Sulfate (Ventolin Hfa Inhaler)) 2 puff Q4HRS INH ; Start 01/12/21 at 12:00; Status UNV Vitamin D (Vitamin D3) 5,000 unit DAILY PO Last administered on 01/17/21 08:29; Start 01/13/21 at 09:00 Cyclobenzaprine HCl (Flexeril) 5 mg TID PO Last administered on 01/17/21 21:29; Start 01/12/21 at 14:00 Duloxetine HCl (Cymbalta) 60 mg BID PO Last administered on 01/17/21 21:29; Start 01/12/21 at 21:00 Pantoprazole Sodium (Protonix) 40 mg DAILYAC PO Last administered on 01/17/21 06:32; Start 01/12/21 at 17:00 Non-Formulary Medication (Rosuvastatin Calcium (Crestor)) 20 mg HS PO ; Start 01/12/21 at 21:00; Status UNV Hydrochlorothiazide (Microzide) 12.5 mg DAILY PO Last administered on 01/17/21 08:30; Start 01/13/21 at 09:00 Losartan Potassium (Cozaar) 100 mg DAILY PO Last administered on 01/17/21 08:30; Start 01/12/21 at 17:00 Torsemide (Demadex) 10 mg DAILY PO Last administered on 01/17/21 08:30; Start 01/13/21 at 09:00 Dexamethasone Sodium Phosphate (Decadron) 4 mg STK-MED ONCE .ROUTE ; Start 01/12/21 at 09:54; Stop 01/12/21 at 09:54; Status DC Albuterol Sulfate (Ventolin Neb Soln) 2.5 mg PRN Q4HRS PRN NEB SHORTNESS OF BREATH; Start 01/12/21 at 10:00 Acetaminophen (Tylenol) 650 mg PRN Q6HRS PRN PO MILD PAIN / TEMP > 100.3'F; St art 01/12/21 at 10:00 Al Hydroxide/Mg Hydroxide (Mylanta Plus Xs) 30 ml PRN Q3HRS PRN PO HEARTBURN / GAS Last administered on 01/14/21at 08:25; Start 01/12/21 at 10:00 Calcium Carbonate/ Glycine (Tums) 500 mg PRN Q3HRS PRN PO INDIGESTION; Start 01/12/21 at 10:00 Diphenhydramine HCl (Benadryl) 25 mg PRN Q6HRS PRN PO ITCHING Last administered on 01/13/21at 20:24; Start 01/12/21 at 10:00 Naloxone HCl (Narcan) 0.1 mg PRN Q2MIN PRN IV SEE COMMENTS; Start 01/12/21 at 10:00 Sodium Chloride (Normal Saline Flush) 3 ml QSHIFT PRN IV AFTER MEDS AND BLOOD DRAWS; Start 01/12/21 at 10:00 Potassium Chloride/Dextrose/ Sod Cl 1,000 ml @ 75 mls/hr [id number] IV Last administered on 01/12/21at 17:14; Start 01/12/21 at 10:00; Stop 01/15/21 at 04:59; Status DC Acetaminophen/ Hydrocodone Bitart (Lortab 5/325) 1 tab PRN Q4HRS PRN PO MODERATE PAIN Last administered on 01/14/21at 18:55; Start 01/12/21 at 10:00; Stop 01/15/21 at 14:54; Status DC Acetaminophen/ Hydrocodone Bitart (Lortab 5/325) 2 tab PRN Q4HRS PRN PO SEVERE PAIN Last administered on 01/15/21at 08:28; Start 01/12/21 at 10:00; Stop 01/15/21 at 14:54; Status DC Docusate Sodium (Colace) 100 mg BID PO Last administered on 01/17/21at 21:29; Start 01/12/21 at 21:00 Magnesium Hydroxide (Milk Of Magnesia) 2,400 mg PRN Q12HR PRN PO CONSTIPATION Last administered on 01/16/21at 08:00; Start 01/12/21 at 10:00 Cefazolin Sodium (Ancef) 1 gm Q8HRS IVP Last administered on 01/12/21at 15:00; Start 01/12/21 at 14:00; Stop 01/12/21 at 15:51; Status DC Fentanyl Citrate (Fentanyl 2ml Vial) 50 mcg PRN Q2HR PRN IVP PAIN; Start 01/12/21 at 10:00 Propofol 50 ml @ As Directed STK-MED ONCE IV ; Start 01/12/21 at 10:27; Stop 01/12/21 at 10:27; Status DC Dexamethasone Sodium Phosphate (Decadron) 4 mg STK-MED ONCE .ROUTE ; Start 01/12/21 at 10:40; Stop 01/12/21 at 10:40; Status DC Ondansetron HCl (Zofran) 4 mg STK-MED ONCE .ROUTE ; Start 01/12/21 at 11:49; Stop 01/12/21 at 11:50; Status DC Remifentanil HCl (Ultiva) 1 mg STK-MED ONCE IV ; Start 01/12/21 at 12:28; Stop 01/12/21 at 12:28; Status DC Cefazolin Sodium/ Dextrose (Ancef 2gm Premix) 2 gm STK-MED ONCE IV ; Start 01/12/21 at 08:00; Stop 01/12/21 at 13:01; Status DC Fentanyl Citrate (Fentanyl 2ml Vial) 100 mcg STK-MED ONCE .ROUTE ; Start 01/12/21 at 14:19; Stop 01/12/21 at 14:19; Status DC Morphine Sulfate (Morphine Sulfate) 2 mg STK-MED ONCE .ROUTE ; Start 01/12/21 at 14:43; Stop 01/12/21 at 14:43; Status DC Hydromorphone HCl (Dilaudid) 2 mg STK-MED ONCE .ROUTE ; Start 01/12/21 at 15:15; Stop 01/12/21 at 15:16; Status DC Cefazolin Sodium (Ancef) 1 gm Q8H IVP Last administered on 01/13/21at 08:29; Start 01/12/21 at 17:00; Stop 01/13/21 at 09:01; Status DC Cefazolin Sodium (Ancef) 1 gm STK-MED ONCE IVP ; Start 01/12/21 at 13:35; Stop 01/12/21 at 15:51; Status DC Cefazolin Sodium (Ancef) 1 gm STK-MED ONCE IVP ; Start 01/12/21 at 12:58; Stop 01/12/21 at 15:51; Status DC Oxycodone/ Acetaminophen (Percocet 7.5/ 325) 1 tab PRN Q4HRS PRN PO MODERATE PAIN Last administered on 01/15/21at 16:22; Start 01/13/21 at 12:15 Oxycodone/ Acetaminophen (Percocet 7.5/ 325) 2 tab PRN Q4HRS PRN PO SEVERE PAIN Last administered on 01/17/21at 21:32; Start 01/15/21 at 15:00 Celecoxib (CeleBREX) 200 mg BID PO Last administered on 01/17/21at 21:29; Start 01/16/21 at 09:00 Bisacodyl (Dulcolax Tab) 10 mg DAILY PO Last administered on 01/17/21at 08:31; Start 01/16/21 at 09:00 Docusate Sodium (Enemeez) 283 mg PRN DAILY PRN AR CONSTIPATION Last administered on 01/17/21at 16:10; Start 01/16/21 at 09:00 Senna/Docusate Sodium (Senna Plus) 1 tab BID PO Last administered on 01/17/21at 21:29; Start 01/16/21 at 09:00 Active Scripts Active Reported Protonix (Pantoprazole Sodium) 20 Mg Tablet.dr 1 Tab PO DAILY Cyclobenzaprine Hcl 5 Mg Tablet 5 Mg PO TID Olmesartan-Hctz 40-12.5 mg Tab (Olmesartan/Hydrochlorothiazide) 1 Each Tablet Unknown Dose PO Torsemide 10 Mg Tablet 10 Mg PO Cymbalta (Duloxetine Hcl) 60 Mg Capsule.dr 60 Mg PO BID Crestor (Rosuvastatin Calcium) 40 Mg Tablet 20 Mg PO HS Stool Softener (Docusate Sodium) 100 Mg Capsule 100 Mg PO PRN PRN Last dose taken today 09 am Vitamin B-12 (Cyanocobalamin (Vitamin B-12)) 1,000 Mcg Tablet 1 Tab PO DAILY Next dose tomorrow 08/08/16 in am Ventolin Hfa Inhaler (Albuterol Sulfate) 18 Gm Hfa.aer.ad 2 Puff INH Q4HRS Resume prior to hospital stay Vitamin D3 (Cholecalciferol (Vitamin D3)) 5,000 Unit Tablet 1 Tab PO DAILY Next dose tomorrow 08/08/16 in am Levothyroxine Sodium 100 Mcg Tablet 1 Tab PO DAILY Next dose tomorrow 08/08/16 in am Vitals/I & O Vital Sign - Last 24 Hours 01/17/21 01/17/21 01/17/21 01/17/21 11:00 15:00 15:54 16:24 Temp 97.9 97.7 97.9 97.7 Pulse 79 78 Resp 18 18 B/P (MAP) 150/57 (88) 99/40 (59) Pulse Ox 98 97 O2 Delivery Nasal Cannula Nasal Cannula Nasal Cannula Room Air O2 Flow Rate 2.0 2.0 2.0 01/17/21 01/17/21 01/17/21 01/17/21 19:00 19:30 21:32 23:00 Temp 98.0 98.0 98.0 98.0 Pulse 76 80 Resp 20 20 B/P (MAP) 125/48 (73) 123/46 (71) Pulse Ox 93 88 O2 Delivery Nasal Cannula Nasal Cannula Nasal Cannula Nasal Cannula O2 Flow Rate 2.0 2.0 2.0 2.0 01/18/21 01/18/21 03:00 07:00 Temp 98.0 97.7 98.0 97.7 Pulse 82 65 Resp 20 20 B/P (MAP) 113/42 (65) 160/73 (102) Pulse Ox 90 90 O2 Delivery Nasal Cannula Nasal Cannula O2 Flow Rate 2.0 2.0 Intake and Output 01/17/21 01/17/21 01/18/21 15:00 23:00 07:00 Intake Total 100 ml 100 ml Balance 100 ml 100 ml Justifications for Admission Other Justification TREVA ACUNA MD Jan 18, 2021 09:29
[2021-01-18] MEDS: oxyCODONE/APAP 7.5/325 1 TAB TABLET PO PRN ×3 (09:51→22:01)
[2021-01-18] MEDS: CELECOXIB 100 MG CAPSULE. PO SCH ×2 (09:51→21:31)
[2021-01-18] MEDS: BISACODYL 5 MG TABLET.DR. PO SCH (09:52)
[2021-01-18] MEDS: DOCUSATE SODIUM 100 MG CAPSULE. PO SCH ×2 (10:00→21:29)
[2021-01-18] MEDS: SENNOSIDES/DOCUSATE 8.6/50MG TABLET. PO SCH ×2 (10:00→21:29)
[2021-01-18] MEDS: hydroCHLOROthiazide 12.5 MG CAPSULE PO SCH (10:01)
[2021-01-18] MEDS: DULoxetine HCL 30 MG CAPSULE.DR PO SCH ×2 (10:01→21:32)
[2021-01-18] MEDS: PANTOPRAZOLE 40 MG TABLET.DR. PO SCH (10:01)
[2021-01-18] MEDS: TORSEMIDE 20 MG TABLET. PO SCH (10:01)
[2021-01-18] MEDS: CYANOCOBALAMIN (VITAMIN B-12) 1,000 MCG TABLET. PO SCH (10:01)
[2021-01-18] MEDS: LOSARTAN POTASSIUM 50 MG TABLET. PO SCH (10:03)
[2021-01-18] MEDS: CYCLOBENZAPRINE 10 MG TABLET. PO SCH ×3 (10:03→21:30)
[2021-01-18] MEDS: CHOLECALCIFEROL (VITAMIN D3) 5,000 UNIT CAPSULE PO SCH (10:10)
[2021-01-18 12:00] VITALS: BP 153/55
[2021-01-18] MEDS ORDERED: OXYC1TAB19 PO (13:59)
--- NOTE | 2021-01-18 14:02 | SNU/HH DC ---
DISCHARGE ORDERS DISCHARGE INFORMATION: DISCHARGE DATE: Jan 18, 2021 FINAL DIAGNOSIS thoracic stenosis CONDITION ON DISCHARGE: Stable CODE STATUS: Code Status: Full PENITENTIARY: SNF STAY <30 DAYS: Yes HOSPICE: HOSPICE: No HOSPICE EVAL & TREAT: No POST DISCHARGE ORDERS: ACTIVITY ORDERS: Activity as tolerated, Avoid exertion, Progressive ambulation, Other, see below (no lifting > 10 lbs) WEIGHT BEARING STATUS: As tolerated BATHING ORDERS: Shower-keep dressing dry, No Tub Bath until see DIET AFTER DISCHARGE: Regular WOUND/INCISION CARE: Ice to area for comfort, Change dressing, May get incision wet, Reinforce dressing PRN OTHER WOUND INSTRUCTIONS: chnage daily and as needed FOLLOW-UP: PHYSICIAN FOLLOW-UP: Dr. Bañuelos's nurse in 2 weeks [phone] TREATMENT/EQUIPMENT ORDERS: ADAPTIVE EQUIPMENT NEEDED: [facility] Therapy For: Evalulation/Treatment DISCHARGE MEDICATIONS: Home Meds Reported Medications Pantoprazole Sodium (PROTONIX) 20 Mg Tablet.dr, 1 TAB PO DAILY for GERD, #30 TAB 01/06/21 Cyclobenzaprine Hcl (CYCLOBENZAPRINE HCL) 5 Mg Tablet, 5 MG PO TID for MUSCLE SPASM, TAB 01/06/21 Olmesartan/Hydrochlorothiazide (Olmesartan-Hctz 40-12.5 mg Tab) 1 Each Tablet, PO, TAB 11/28/20 Torsemide (TORSEMIDE) 10 Mg Tablet, 10 MG PO, TAB 11/28/20 Duloxetine Hcl (CYMBALTA) 60 Mg Capsule.dr, 60 MG PO BID for DEPRESSION, CAP 11/28/20 Rosuvastatin Calcium (CRESTOR) 40 Mg Tablet, 20 MG PO HS for FOR CHOLESTEROL, #30 TAB 0 Refills 11/28/20 Docusate Sodium (STOOL SOFTENER) 100 Mg Capsule, 100 MG PO PRN PRN for CONFUSION Last dose taken today 09 am 08/06/16 Cyanocobalamin (Vitamin B-12) (VITAMIN B-12) 1,000 Mcg Tablet, 1 TAB PO DAILY, #30 TAB 2 Refills Next dose tomorrow 08/08/16 in am 06/25/16 Albuterol Sulfate (VENTOLIN HFA INHALER) 18 Gm Hfa.aer.ad, 2 PUFF INH Q4HRS for FOR ASTHMA, INHALER 0 Refills Resume prior to hospital stay 06/25/16 Cholecalciferol (Vitamin D3) (VITAMIN D3) 5,000 Unit Tablet, 1 TAB PO DAILY, #30 TAB Next dose tomorrow 08/08/16 in am 07/07/15 Levothyroxine Sodium (LEVOTHYROXINE SODIUM) 100 Mcg Tablet, 1 TAB PO DAILY, #30 TAB 5 Refills Next dose tomorrow 08/08/16 in am 07/07/15 ASHLEY BAÑUELOS MD Jan 18, 2021 14:02
[2021-01-18 15:00] VITALS: BP 150/56
[2021-01-18 19:00] VITALS: BP 113/42
[2021-01-18] MEDS: LEVOTHYROXINE 100 MCG TABLET PO SCH (21:29)
[2021-01-18 23:00] VITALS: BP 112/41
[2021-01-19] MEDS: oxyCODONE/APAP 7.5/325 1 TAB TABLET PO PRN ×4 (02:53→17:02)
[2021-01-19 03:00] VITALS: BP 113/39
[2021-01-19 07:15] VITALS: BP 154/43
[2021-01-19] MEDS: hydroCHLOROthiazide 12.5 MG CAPSULE PO SCH (07:41)
[2021-01-19] MEDS: CHOLECALCIFEROL (VITAMIN D3) 5,000 UNIT CAPSULE PO SCH (07:45)
[2021-01-19] MEDS: DULoxetine HCL 30 MG CAPSULE.DR PO SCH (07:46)
[2021-01-19] MEDS: PANTOPRAZOLE 40 MG TABLET.DR. PO SCH (07:46)
[2021-01-19] MEDS: CYANOCOBALAMIN (VITAMIN B-12) 1,000 MCG TABLET. PO SCH (07:46)
[2021-01-19] MEDS: BISACODYL 5 MG TABLET.DR. PO SCH (07:46)
[2021-01-19] MEDS: DOCUSATE SODIUM 100 MG CAPSULE. PO SCH (07:46)
[2021-01-19] MEDS: TORSEMIDE 20 MG TABLET. PO SCH (07:47)
[2021-01-19] MEDS: CYCLOBENZAPRINE 10 MG TABLET. PO SCH ×2 (07:47→13:11)
[2021-01-19] MEDS: CELECOXIB 100 MG CAPSULE. PO SCH (07:47)
[2021-01-19] MEDS: SENNOSIDES/DOCUSATE 8.6/50MG TABLET. PO SCH (07:47)
[2021-01-19] MEDS: LOSARTAN POTASSIUM 50 MG TABLET. PO SCH (08:02)
--- NOTE | 2021-01-19 08:24 | PDOC ---
PROGRESS NOTES Date of Service DATE: 01/19/21 TIME: 08:20 Subjective Subjective Still admits pain with rolling in bed and getting up and is constipated. Objective Objective Vital Signs Date Time Temp Pulse Resp B/P (MAP) Pulse Ox O2 Delivery O2 Flow Rate FiO2 01/19/21 08:02 72 154/43 01/19/21 07:45 20 96 Nasal Cannula 2.0 01/19/21 07:15 97.8 97.8 Intake and Output 01/19/21 07:00 Intake Total 600 ml Balance 600 ml Intake Oral 600 ml # Voids 4 Physical Exam Physical Exam She is alert,sitting at edge of bed and eating breakfast and does not seem to be in any significant distress and she is walking with roller walker. Plan Plan of Care To SNF if she qualifies otherwise home with home health follow up. Comment Review of Relevant I have reviewed the following items jase (where applicable) has been applied. Labs Laboratory Tests Test 01/17/21 11:43 01/17/21 16:40 01/17/21 20:50 01/18/21 08:22 Glucose (Fingerstick) 179 mg/dL (70-99) 104 mg/dL (70-99) 131 mg/dL (70-99) 135 mg/dL (70-99) Test 01/18/21 12:12 01/18/21 17:07 01/18/21 21:06 01/19/21 07:26 Glucose (Fingerstick) 133 mg/dL (70-99) 134 mg/dL (70-99) 123 mg/dL (70-99) 129 mg/dL (70-99) Laboratory Tests Test 01/18/21 08:22 01/18/21 12:12 01/18/21 17:07 01/18/21 21:06 Glucose (Fingerstick) 135 mg/dL (70-99) 133 mg/dL (70-99) 134 mg/dL (70-99) 123 mg/dL (70-99) Test 01/19/21 07:26 Glucose (Fingerstick) 129 mg/dL (70-99) Medications Current Medications Bacitracin 24856 unit/Sodium Chloride 1,000 ml @ 1,000 mls/hr 1X ONCE IRR Last administered on 01/12/21at 10:09; Start 01/12/21 at 06:00; Stop 01/12/21 at 06:59; Status DC Fentanyl Citrate (Fentanyl 2ml Vial) 25 mcg PRN Q5MIN PRN IVP MILD PAIN 1-3; Start 01/12/21 at 06:00; Stop 01/13/21 at 05:59; Status DC Fentanyl Citrate (Fentanyl 2ml Vial) 50 mcg PRN Q5MIN PRN IVP MODERATE PAIN 4-6 Last administered on 01/12/21at 14:26; Start 01/12/21 at 06:00; Stop 01/13/21 at 05:59; Status DC Morphine Sulfate (Morphine Sulfate) 1 mg PRN Q10MIN PRN IVP SEVERE PAIN 7-10 Last administered on 01/12/21at 14:58; Start 01/12/21 at 06:00; Stop 01/13/21 at 05:59; Status DC Ringer's Solution 1,000 ml @ 30 mls/hr Q24H IV Last administered on 01/12/21at 07:55; Start 01/12/21 at 06:00; Stop 01/12/21 at 17:59; Status DC Hydromorphone HCl (Dilaudid) 0.5 mg PRN Q10MIN PRN IVP SEVERE PAIN 7-10, 2nd CHOICE Last administered on 01/12/21at 15:17; Start 01/12/21 at 06:00; Stop 01/13/21 at 05:59; Status DC Prochlorperazine Edisylate (Compazine) 5 mg PACU PRN PRN IVP NAUSEA, MRX1; Start 01/12/21 at 06:00; Stop 01/13/21 at 05:59; Status DC Cefazolin Sodium/ Dextrose 50 ml @ 100 mls/hr 1X ONCE IV Last administered on 01/12/21at 09:20; Start 01/12/21 at 06:00; Stop 01/12/21 at 06:29; Status DC Gelatin (Gelfoam Size 100) 1 each STK-MED ONCE .ROUTE Last administered on 01/12/21at 10:09; Start 01/12/21 at 07:09; Stop 01/12/21 at 07:10; Status DC Bupivacaine HCl/ Epinephrine Bitart (Sensorcain-Epi 0.5%-1:376804 Mpf) 30 ml STK-MED ONCE .ROUTE Last administered on 01/12/21at 10:09; Start 01/12/21 at 07:09; Stop 01/12/21 at 07:10; Status DC Ketorolac Tromethamine (Toradol Im) 60 mg STK-MED ONCE .ROUTE Last administered on 01/12/21at 10:09; Start 01/12/21 at 07:09; Stop 01/12/21 at 07:10; Status DC Thrombin 20,000 unit STK-MED ONCE TP Last administered on 01/12/21at 10:09; Start 01/12/21 at 07:10; Stop 01/12/21 at 07:10; Status DC Scopolamine (Transderm-Scop) 1 patch 1X ONCE TD Last administered on 01/12/21at 07:55; Start 01/12/21 at 07:30; Stop 01/12/21 at 07:31; Status DC Propofol (Diprivan) 200 mg STK-MED ONCE IV ; Start 01/12/21 at 07:37; Stop 01/12/21 at 07:37; Status DC Propofol 50 ml @ As Directed STK-MED ONCE IV ; Start 01/12/21 at 07:37; Stop 01/12/21 at 07:37; Status DC Fentanyl Citrate (Fentanyl 2ml Vial) 100 mcg STK-MED ONCE .ROUTE ; Start 01/12/21 at 07:37; Stop 01/12/21 at 07:37; Status DC Succinylcholine Chloride (Anectine) 200 mg STK-MED ONCE .ROUTE ; Start 01/12/21 at 07:37; Stop 01/12/21 at 07:38; Status DC Rocuronium Himrod (Zemuron) 50 mg STK-MED ONCE .ROUTE ; Start 01/12/21 at 07:38; Stop 01/12/21 at 07:38; Status DC Remifentanil HCl (Ultiva) 2 mg STK-MED ONCE IV ; Start 01/12/21 at 07:38; Stop 01/12/21 at 07:39; Status DC Sodium Chloride (SODIUM CHLORIDE 20ml) 20 ml STK-MED ONCE IJ ; Start 01/12/21 at 07:40; Stop 01/12/21 at 07:40; Status DC Phenylephrine HCl (PHENYLEPHRINE in 0.9% NACL PF) 1 mg STK-MED ONCE IV ; Start 01/12/21 at 09:36; Stop 01/12/21 at 09:36; Status DC Cyanocobalamin (Vitamin B-12) 1,000 mcg DAILY PO Last administered on 01/19/21 07:46; Start 01/13/21 at 09:00 Levothyroxine Sodium (Synthroid) 100 mcg QHS PO Last administered on 01/18/21 21:29; Start 01/12/21 at 21:00 Non-Formulary Medication (Albuterol Sulfate (Ventolin Hfa Inhaler)) 2 puff Q4HRS INH ; Start 01/12/21 at 12:00; Status UNV Vitamin D (Vitamin D3) 5,000 unit DAILY PO Last administered on 01/19/21 07:45; Start 01/13/21 at 09:00 Cyclobenzaprine HCl (Flexeril) 5 mg TID PO Last administered on 01/19/21 07:47; Start 01/12/21 at 14:00 Duloxetine HCl (Cymbalta) 60 mg BID PO Last administered on 01/19/21 07:46; Start 01/12/21 at 21:00 Pantoprazole Sodium (Protonix) 40 mg DAILYAC PO Last administered on 01/19/21 07:46; Start 01/12/21 at 17:00 Non-Formulary Medication (Rosuvastatin Calcium (Crestor)) 20 mg HS PO ; Start 01/12/21 at 21:00; Status UNV Hydrochlorothiazide (Microzide) 12.5 mg DAILY PO Last administered on 01/19/21 07:41; Start 01/13/21 at 09:00 Losartan Potassium (Cozaar) 100 mg DAILY PO Last administered on 01/19/21 08:02; Start 01/12/21 at 17:00 Torsemide (Demadex) 10 mg DAILY PO Last administered on 01/19/21 07:47; Start 01/13/21 at 09:00 Dexamethasone Sodium Phosphate (Decadron) 4 mg STK-MED ONCE .ROUTE ; Start 01/12/21 at 09:54; Stop 01/12/21 at 09:54; Status DC Albuterol Sulfate (Ventolin Neb Soln) 2.5 mg PRN Q4HRS PRN NEB SHORTNESS OF BREATH; Start 01/12/21 at 10:00 Acetaminophen (Tylenol) 650 mg PRN Q6HRS PRN PO MILD PAIN / TEMP > 100.3'F; Start 01/12/21 at 10:00 Al Hydroxide/Mg Hydroxide (Mylanta Plus Xs) 30 ml PRN Q3HRS PRN PO HEARTBURN / GAS Last administered on 01/14/21at 08:25; Start 01/12/21 at 10:00 Calcium Carbonate/ Glycine (Tums) 500 mg PRN Q3HRS PRN PO INDIGESTION; Start 01/12/21 at 10:00 Diphenhydramine HCl (Benadryl) 25 mg PRN Q6HRS PRN PO ITCHING Last administered on 01/13/21at 20:24; Start 01/12/21 at 10:00 Naloxone HCl (Narcan) 0.1 mg PRN Q2MIN PRN IV SEE COMMENTS; Start 01/12/21 at 10:00 Sodium Chloride (Normal Saline Flush) 3 ml QSHIFT PRN IV AFTER MEDS AND BLOOD DRAWS; Start 01/12/21 at 10:00 Potassium Chloride/Dextrose/ Sod Cl 1,000 ml @ 75 mls/hr [id number] IV Last administered on 01/12/21at 17:14; Start 01/12/21 at 10:00; Stop 01/15/21 at 04:59; Status DC Acetaminophen/ Hydrocodone Bitart (Lortab 5/325) 1 tab PRN Q4HRS PRN PO MODERATE PAIN Last administered on 01/14/21at 18:55; Start 01/12/21 at 10:00; Stop 01/15/21 at 14:54; Status DC Acetaminophen/ Hydrocodone Bitart (Lortab 5/325) 2 tab PRN Q4HRS PRN PO SEVERE PAIN Last administered on 01/15/21at 08:28; Start 01/12/21 at 10:00; Stop 01/15/21 at 14:54; Status DC Docusate Sodium (Colace) 100 mg BID PO Last administered on 01/19/21at 07:46; Start 01/12/21 at 21:00 Magnesium Hydroxide (Milk Of Magnesia) 2,400 mg PRN Q12HR PRN PO CONSTIPATION Last administered on 01/16/21at 08:00; Start 01/12/21 at 10:00 Cefazolin Sodium (Ancef) 1 gm Q8HRS IVP Last administered on 01/12/21at 15:00; Start 01/12/21 at 14:00; Stop 01/12/21 at 15:51; Status DC Fentanyl Citrate (Fentanyl 2ml Vial) 50 mcg PRN Q2HR PRN IVP PAIN; Start 01/12/21 at 10:00 Propofol 50 ml @ As Directed STK-MED ONCE IV ; Start 01/12/21 at 10:27; Stop 01/12/21 at 10:27; Status DC Dexamethasone Sodium Phosphate (Decadron) 4 mg STK-MED ONCE .ROUTE ; Start 01/12/21 at 10:40; Stop 01/12/21 at 10:40; Status DC Ondansetron HCl (Zofran) 4 mg STK-MED ONCE .ROUTE ; Start 01/12/21 at 11:49; Stop 01/12/21 at 11:50; Status DC Remifentanil HCl (Ultiva) 1 mg STK-MED ONCE IV ; Start 01/12/21 at 12:28; Stop 01/12/21 at 12:28; Status DC Cefazolin Sodium/ Dextrose (Ancef 2gm Premix) 2 gm STK-MED ONCE IV ; Start 01/12/21 at 08:00; Stop 01/12/21 at 13:01; Status DC Fentanyl Citrate (Fentanyl 2ml Vial) 100 mcg STK-MED ONCE .ROUTE ; Start 01/12/21 at 14:19; Stop 01/12/21 at 14:19; Status DC Morphine Sulfate (Morphine Sulfate) 2 mg STK-MED ONCE .ROUTE ; Start 01/12/21 at 14:43; Stop 01/12/21 at 14:43; Status DC Hydromorphone HCl (Dilaudid) 2 mg STK-MED ONCE .ROUTE ; Start 01/12/21 at 15:15; Stop 01/12/21 at 15:16; Status DC Cefazolin Sodium (Ancef) 1 gm Q8H IVP Last administered on 01/13/21at 08:29; Start 01/12/21 at 17:00; Stop 01/13/21 at 09:01; Status DC Cefazolin Sodium (Ancef) 1 gm STK-MED ONCE IVP ; Start 01/12/21 at 13:35; Stop 01/12/21 at 15:51; Status DC Cefazolin Sodium (Ancef) 1 gm STK-MED ONCE IVP ; Start 01/12/21 at 12:58; Stop 01/12/21 at 15:51; Status DC Oxycodone/ Acetaminophen (Percocet 7.5/ 325) 1 tab PRN Q4HRS PRN PO MODERATE P AIN Last administered on 01/15/21at 16:22; Start 01/13/21 at 12:15 Oxycodone/ Acetaminophen (Percocet 7.5/ 325) 2 tab PRN Q4HRS PRN PO SEVERE PAIN Last administered on 01/19/21at 07:45; Start 01/15/21 at 15:00 Celecoxib (CeleBREX) 200 mg BID PO Last administered on 01/19/21at 07:47; Start 01/16/21 at 09:00 Bisacodyl (Dulcolax Tab) 10 mg DAILY PO Last administered on 01/19/21at 07:46; Start 01/16/21 at 09:00 Docusate Sodium (Enemeez) 283 mg PRN DAILY PRN PA CONSTIPATION Last administered on 01/17/21at 16:10; Start 01/16/21 at 09:00 Senna/Docusate Sodium (Senna Plus) 1 tab BID PO Last administered on 01/19/21at 07:47; Start 01/16/21 at 09:00 Active Scripts Active Reported Protonix (Pantoprazole Sodium) 20 Mg Tablet.dr 1 Tab PO DAILY Cyclobenzaprine Hcl 5 Mg Tablet 5 Mg PO TID Olmesartan-Hctz 40-12.5 mg Tab (Olmesartan/Hydrochlorothiazide) 1 Each Tablet Unknown Dose PO Torsemide 10 Mg Tablet 10 Mg PO Cymbalta (Duloxetine Hcl) 60 Mg Capsule.dr 60 Mg PO BID Crestor (Rosuvastatin Calcium) 40 Mg Tablet 20 Mg PO HS Stool Softener (Docusate Sodium) 100 Mg Capsule 100 Mg PO PRN PRN Last dose taken today 09 am Vitamin B-12 (Cyanocobalamin (Vitamin B-12)) 1,000 Mcg Tablet 1 Tab PO DAILY Next dose tomorrow 08/08/16 in am Ventolin Hfa Inhaler (Albuterol Sulfate) 18 Gm Hfa.aer.ad 2 Puff INH Q4HRS Resume prior to hospital stay Vitamin D3 (Cholecalciferol (Vitamin D3)) 5,000 Unit Tablet 1 Tab PO DAILY Next dose tomorrow 08/08/16 in am Levothyroxine Sodium 100 Mcg Tablet 1 Tab PO DAILY Next dose tomorrow 08/08/16 in am Vitals/I & O Vital Sign - Last 24 Hours 01/18/21 01/18/21 01/18/21 01/18/21 09:51 10:03 10:21 12:00 Temp 97.5 97.5 Pulse 65 83 Resp 20 20 20 B/P (MAP) 160/73 153/55 (87) Pulse Ox 90 91 90 O2 Delivery Nasal Cannula Nasal Cannula Nasal Cannula O2 Flow Rate 2.0 2.0 2.0 01/18/21 01/18/21 01/18/21 01/18/21 15:00 17:00 17:30 19:00 Temp 97.9 98.0 97.9 98.0 Pulse 80 78 Resp 18 20 20 18 B/P (MAP) 150/56 (87) 113/42 (65) Pulse Ox 91 91 91 96 O2 Delivery Nasal Cannula Nasal Cannula Nasal Cannula O2 Flow Rate 2.0 2.0 2.0 01/18/21 01/18/21 01/18/21 01/19/21 20:00 22:01 23:00 00:41 Temp 97.6 97.6 Pulse 79 Resp 18 14 B/P (MAP) 112/41 (64) Pulse Ox 93 96 O2 Delivery Nasal Cannula Nasal Cannula Nasal Cannula O2 Flow Rate 2.0 2.0 2.0 01/19/21 01/19/21 01/19/21 01/19/21 02:53 03:00 03:30 07:15 Temp 97.5 97.8 97.5 97.8 Pulse 81 72 Resp 16 18 B/P (MAP) 113/39 (63) 154/43 (80) Pulse Ox 96 95 O2 Delivery Nasal Cannula Nasal Cannula Nasal Cannula O2 Flow Rate 2.0 2.0 2.0 01/19/21 01/19/21 07:45 08:02 Pulse 72 Resp 20 B/P (MAP) 154/43 Pulse Ox 96 O2 Delivery Nasal Cannula O2 Flow Rate 2.0 Intake and Output 01/18/21 01/18/2101/19/21 15:00 23:00 07:00 Intake Total 400 ml 200 ml Balance 400 ml 200 ml Justifications for Admission Other Justification TREVA ACUNA MD Jan 19, 2021 08:24
[2021-01-19] MEDS ORDERED: MAGNESIUM CITRATE 296 ML SOLUTION. PO PRN (08:30)
[2021-01-19 11:08] VITALS: BP 139/73
--- NOTE | 2021-01-19 15:00 | SNU/HH DC ---
DISCHARGE WITH HOME HEALTH DISCHARGE INFORMATION: Discharge Date: Jan 19, 2021 Final Diagnosis: thoracic stenosis, cyst Condition on Discharge: Stable CODE STATUS: Code Status: Full HOME HEALTH: Face to Face: I certify this patient is under my care and that I, or a nurse practitioner or physician's podiatric assistant working with me, had a face to face encounter that meets the physician face to face encounter requirements with this patient on []. Medical Complications: COPD RN For Eval/Treatment: Yes Physical Therapy For: Evalulation/Treatment Pt Meets Homebound Status: Limited distance walking POST DISCHARGE ORDERS: Activity Instructions for Disc: Activity as tolerated, Avoid exertion, Progressive ambulation, Other, see below (no lifting > 10 lbs) Weight Bearing Status after Di: As tolerated Bathing Instructions: Shower-keep dressing dry, No Tub Bath until see DIET AFTER DISCHARGE: Regular Wound/Incision Care: Ice to area for comfort, Change dressing, May get incision wet, Reinforce dressing PRN Other wound/incision instructi: change daily and as needed FOLLOW-UP: Follow up with: Dr. Bañuelos's nurse in 2 weeks [phone] TREATMENT/EQUIPMENT ORDERS: Adaptive Equipment Issued: Walker CERTIFICATION STATEMENT: Certification Statement: Certification Statement: Based on the above finding, I certify that this patient is confined to the home and needs intermittent intermediate care, physical therapy and/or speech therapy, or continues to need occupational therapy.~ This patient is under my care, and I have initiated the establishment of the plan of care.~ This patient will be followed by myself or a community physician who will periodically review the plan of care. Home Meds Reported Medications Pantoprazole Sodium (PROTONIX) 20 Mg Tablet., 1 TAB PO DAILY for GERD, #30 TAB 01/06/21 Cyclobenzaprine Hcl (CYCLOBENZAPRINE HCL) 5 Mg Tablet, 5 MG PO TID for MUSCLE SPASM, TAB 01/06/21 Olmesartan/Hydrochlorothiazide (Olmesartan-Hctz 40-12.5 mg Tab) 1 Each Tablet, PO, TAB 11/28/20 Torsemide (TORSEMIDE) 10 Mg Tablet, 10 MG PO, TAB 11/28/20 Duloxetine Hcl (CYMBALTA) 60 Mg Capsule., 60 MG PO BID for DEPRESSION, CAP 11/28/20 Rosuvastatin Calcium (CRESTOR) 40 Mg Tablet, 20 MG PO HS for FOR CHOLESTEROL, #30 TAB 0 Refills 11/28/20 Docusate Sodium (STOOL SOFTENER) 100 Mg Capsule, 100 MG PO PRN PRN for CONFUSION Last dose taken today 09 am 08/06/16 Cyanocobalamin (Vitamin B-12) (VITAMIN B-12) 1,000 Mcg Tablet, 1 TAB PO DAILY, #30 TAB 2 Refills Next dose tomorrow 08/08/16 in am 06/25/16 Albuterol Sulfate (VENTOLIN HFA INHALER) 18 Gm Hfa.aer.ad, 2 PUFF INH Q4HRS for FOR ASTHMA, INHALER 0 Refills Resume prior to hospital stay 06/25/16 Cholecalciferol (Vitamin D3) (VITAMIN D3) 5,000 Unit Tablet, 1 TAB PO DAILY, #30 TAB Next dose tomorrow 08/08/16 in am 07/07/15 Levothyroxine Sodium (LEVOTHYROXINE SODIUM) 100 Mcg Tablet, 1 TAB PO DAILY, #30 TAB 5 Refills Next dose tomorrow 08/08/16 in am 07/07/15 ASHLEY BAÑUELOS MD Jan 19, 2021 15:00
[2021-01-19 15:06] VITALS: BP 130/70
--- NOTE | 2021-01-19 17:30 | NUR ---
Patient dismissed to family in stable condition. Patient verbalized understanding of discharge instructions, including, but not limited to diet, medications, activity, bathing, follow up. Prescriptions written by physicians given to patient, copies on chart.
--- NOTE | 2021-01-20 01:02 | OP ---
DATE OF SURGERY: 01/12/2021 DUPLICATE ABBY/ERAN/MARY DR: Jackson TID: [id number] [facility]onna
--- NOTE | 2021-02-01 12:49 | DS ---
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 OPERATION PERFORMED: Thoracic laminectomy, partial T2, T3, T4, partial T5 with intradural exploration and removal/fenestration of arachnoid cyst. HISTORY OF HOSPITAL COURSE: The patient is a pleasant 65-year-old who has gradually developed weakness in her lower extremities as well as problems with gait. She notices problems on the left side more than the right. She feels as though her legs may give out. She notices pain in the upper thoracic region. On imaging studies, the spinal cord was compressed at T3-T4, most likely from a posterior arachnoid cyst, although spinal cord herniation was also a possibility. I recommended surgery and that the nature of this problem would be progressive. She understood she did have significant medical risk, especially pulmonary and I discussed the situation with her and she strongly wanted to proceed. HOSPITAL COURSE: She was admitted to the floor postoperatively where she did well. She was able to work with physical therapy and be up and ambulating. Her pain is now well controlled and she is in good condition to discharge home with home health services. DISCHARGE MEDICATIONS: She will resume her medications per the MRAD. DISCHARGE INSTRUCTIONS: She was instructed regarding incision care, activity restrictions and expectations for the next several weeks. She will have home health, physical therapy and nursing services. She will follow up with us in 2 weeks. She understands to call us with any questions or concerns. DARCY DR: Roland TID: [id number]
== END 2021-01-19 17:30 | disposition home health service (06) | DRG 29 ==
LOC: OPSVCIP 07:01 → 4 SOUTHEST 15:46 → 4 NORTH 01-13 18:39
PROVIDERS: ADMIT Neurological Surgery; ATTEND Neurological Surgery
PROC: 00NX0ZZ Release Thoracic Spinal Cord, Open Approach (ICD-10-PCS; 2021-01-12)
PROC: 0PB40ZZ Excision of Thoracic Vertebra, Open Approach (ICD-10-PCS; 2021-01-12)
PROC: 4A11X4G Monitoring of Peripheral Nervous Electrical Activity, Intraoperative, External Approach (ICD-10-PCS; 2021-01-12)
PROC: 00BX0ZZ Excision of Thoracic Spinal Cord, Open Approach (ICD-10-PCS; principal; 2021-01-12 08:30)
DX: G96.198 Other disorders of meninges, not elsewhere classified (principal); Z68.41 Body mass index [BMI] 40.0-44.9, adult; G95.29 Other cord compression; E89.0 Postprocedural hypothyroidism; I10 Essential (primary) hypertension; J44.9 Chronic obstructive pulmonary disease, unspecified; M48.04 Spinal stenosis, thoracic region; Z82.49 Family history of ischemic heart disease and other diseases of the circulatory system; Z87.11 Personal history of peptic ulcer disease; Z87.442 Personal history of urinary calculi; Z87.891 Personal history of nicotine dependence; Z90.710 Acquired absence of both cervix and uterus; Z92.3 Personal history of irradiation; Z99.81 Dependence on supplemental oxygen; E66.9 Obesity, unspecified; M19.90 Unspecified osteoarthritis, unspecified site; Z90.49 Acquired absence of other specified parts of digestive tract; Z88.5 Allergy status to narcotic agent
CPT/HCPCS: 36415; 76000; 80048; 82962; 85025; 86140; 87426; 88304; 88311; 94640; A4213; A4364; A4930; A6254; A6258; J0330; J0690; J1100; J1170; J1885; J2270; J2370; J2405; J2704; J3010; J3480; J3490; J7030; J7120; U0003; U0005; 97110-GP; 97116-GP; 97530-GP; 97535-GO; G0378; Q0163

== ENCOUNTER → 2021-07-18 | Outpatient (CLI) | payer MEDICARE, MEDICAID ==
[~2021-07-18] MED LIST changes: -BACITRACIN 50,000 UNIT in IV NORMAL SALINE 1000ML BAG 1,000 ML IRR ONE; +CETI1TAB7 PO; -CITA40TA5 PO; +CITA40TA6 PO; +CYCL10TA19 PO; -CYCL10TA2 PO; +CYCL1DRO EACHEYE; -DULO60CA6 PO; +DULO60CA7 PO; +GADOTERATE 7.5 MMOL/15ML VIAL. IVP ONE; -HYDROmorphone 2 MG/ML VIAL IVP PRN; -IV RINGERS,LACTATED 1000ML 1,000 ML IV SCH; +LOTE8.3D OP; +OXYC1TAB19 PO; -PROCHLORPERAZINE 10 MG/2 ML VIAL. IVP PRN; +SITA50TA PO; +TIOT4MIS3 IH; -fentaNYL PF VIAL 100 MCG/2 ML VIAL IVP PRN
--- NOTE | 2021-07-18 15:50 | KCIC ---
MRI THORACIC SPINE WITHOUT AND WITH IV CONTRAST 07/18/2021 8:45 AM INDICATION: Thoracic radiculopathy. COMPARISON: MR thoracic spine 321. TECHNIQUE: Multiplanar, multisequence MR imaging of the thoracic spine was performed before and afte r administration of gadolinium based contrast. FINDINGS: 2 mm retrolisthesis of T11 on T12. Vertebral body heights are maintained. Disc heights are maintained . There is disc desiccation throughout the thoracic spine. Thoracic spinal cord signal intensity appe ars normal. Laminectomy changes are identified at T3 and T4. There is a residual superficial fluid co llection measuring 1.2 x 1.5 x 5.6 cm. Additional deep an epidural fluid collection is identified wit hout compression of the thecal sac measuring 0.7 x 1.3 x 4.0 cm extending from the superior endplate of T3 to the inferior endplate of T4. There is no cord compression. Previously seen deformity of the thoracic cord is less apparent suggestive of improved arachnoid web or arachnoid cyst. There is no gomez spicious enhancement identified. Minimal rim enhancement along the fluid collections within the epidu ral space and superficial subcutaneous soft tissues. Findings favor postoperative seroma. No gas iden tified to suggest abscess. No significant associated mass effect. Correlate with any symptoms associa kwabena with intracranial hypotension to assess for dural leak. Mild thoracic spondylosis appears stable. Thoracic aorta is normal in caliber. No suspicious pulmonary abnormalities identified. Simple cyst id entified in the superior pole left kidney measuring 8 mm. Adrenal glands are normal. IMPRESSION: Laminectomy changes are identified at T3 and T4 with repair of previously seen suspected arachnoid cy st versus arachnoid web. Correlate with surgical findings. There is a thin noncompressive epidural fl uid collection without significant enhancement, likely associated with postoperative seroma. Addition al superficial fluid collection that significant associated edema is noted without compression of the underlying structures. Correlate with any symptoms of intracranial hypotension to assess for dural l eak. Electronically signed by: Sonia Renteria MD (07/18/2021 3:48 PM) [id number]
== END ==
LOC: KCIC MRI 08:26
PROVIDERS: ATTEND Neurological Surgery
DX: M47.814 Spondylosis without myelopathy or radiculopathy, thoracic region (principal); M43.14 Spondylolisthesis, thoracic region; G96.810 Intracranial hypotension, unspecified; N28.1 Cyst of kidney, acquired
CPT/HCPCS: 72157; 82565; A9575

== ENCOUNTER → 2021-08-08 | Outpatient (CLI) | payer MEDICARE, MEDICAID ==
[~2021-08-08] MED LIST changes: -GADOTERATE 7.5 MMOL/15ML VIAL. IVP ONE
--- NOTE | 2021-08-08 12:18 | PDOC1 ---
INITIAL PAIN CONSULT DATE OF SERVICE: DOS: DATE: 08/08/21 TIME: 12:08 CHIEF COMPLAINT: Chief Complaint: Mid upper and lower back pain HISTORY OF PRESENT ILLNESS: 66-year-old female presents with history of pain in the mid upper back and mid lower back status post thoracic laminectomy for cystectomy at T3-25 December 2020. Patient did well postoperatively but has significant pain status post physical therapy which actually made the pain worse also deep tissue massage making the pain worse as well doing heat and ice applications which is decreasing the pain but only very mildly patient reports the pain is getting more persistent in the mid upper back more on the right side in the mid upper distribution and more on the left side in the mid lower distribution of the mid back patient reports is hard to turn to stand change positions disturbs her sleep significantly wakes her from sleep at least twice a night does not affect her bowel bladder control but does affect her ability to walk and perform any daily activities patient reports her whole back feels "numb" patient reports disability rating 0-10 10 being the worst is a 10 with 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 Has been taking hydrocodone as well as muscle relaxer neither of which decrease the pain significantly. Patient again through physical [facility] and exercise currently doing some stretching but making the pain worse after therapy and with deep tissue massage made the pain much worse. Patient reports no specific radiation into the upper or lower extremities but radiation to the lateral aspect of the flank worse on the right than the left in the mid upper back as well. Patient reports pain is constant sharp stabbing with numbness and burning searing hot pain in the mid upper back as well. PAST MEDICAL HISTORY: PMH: Arthritis, hypertension, COPD, diabetes, rectal cancer 2017 status post chemotherapy and radiation, cigarette smoking quit 20 years ago, sleep apnea PREVIOUS SURGERIES: Past Surgical Hx: Cataract extraction, hysterectomy, cervical laminectomy, thyroidectomy, cholecystectomy, right carpal tunnel release, thoracic laminectomy 2020 CURRENT MEDICATIONS: Current Meds: Active Scripts Medications Dose Route/Sig Max Daily Dose Days Date Category Dose Instructions Stiolto Respimat Inhal [place] (Tiotropium Br/Olodaterol HCl) 4 Gm Mist.inhal 4 Gm IH BID 08/08/21 Reported Zyrtec-D Tablet (Cetirizine Hcl/Pseudoephedrine) 1 Each Tab.er.12h 1 Each PO DAILY 08/08/21 Reported Eysuvis (Loteprednol Etabonate) 8.3 Ml Drops.susp 8.3 Ml OP DAILY 08/08/21 Reported Restasis (Cyclosporine) 1 Each Droperette 1 Drop EACHEYE BID 08/08/21 Reported Omeprazole 40 Mg Capsule.dr 1 Cap PO DAILY 08/08/21 Reported Bupropion Xl (Bupropion Hcl) 300 Mg Tab.er.24h 1 Tab PO DAILYWBKFT 08/08/21 Reported Januvia (Sitagliptin Phosphate) 50 Mg Tablet 1 Tab PO DAILY 08/08/21 Reported Olmesartan-Hctz 40-12.5 mg Tab (Olmesartan/Hydrochlorothiazide) 1 Each Tablet Unknown Dose PO 11/28/20 Reported Crestor (Rosuvastatin Calcium) 40 Mg Tablet 20 Mg PO HS 11/28/20 Reported Stool Softener (Docusate Sodium) 100 Mg Capsule 100 Mg PO PRN PRN 08/06/16 Reported Last dose taken today 09 am Vitamin B-12 (Cyanocobalamin (Vitamin B-12)) 1,000 Mcg Tablet 1 Tab PO DAILY 06/25/16 Reported Next dose tomorrow 08/08/16 in am Ventolin Hfa Inhaler (Albuterol Sulfate) 18 Gm Hfa.aer.ad 2 Puff INH Q4HRS 06/25/16 Reported Resume prior to hospital stay Vitamin D3 (Cholecalciferol (Vitamin D3)) 5,000 Unit Tablet 1 Tab PO DAILY 07/07/15 Reported Next dose tomorrow 08/08/16 in am Levothyroxine Sodium 100 Mcg Tablet 1 Tab PO DAILY 07/07/15 Reported Next dose tomorrow 08/08/16 in am ALLERGIES; Allergies: Coded Allergies: codeine (Verified Allergy, Intermediate, rash, 01/12/21) Xcfstor-CAE-RgG Reductase Inhibitor (Verified Adverse Reaction, Intermediate, MYALGIA, 01/06/21) FAMILY HISTORY: Family Hx: Cancer, hypertension, diabetes SOCIAL HISTORY: Social Hx: Patient does not drink alcohol very rarely quit smoking 20 years ago does not use any illegal illicit recreational drugs is lives locally in [facility] REVIEW OF SYSTEMS: ROS: Positive for those items mentioned in history of present illness, all systems are reviewed, otherwise negative ,and are complete full and well-documented on patient's chart. PHYSICAL EXAM: VS: Blood pressure is 151/67 pulse 68 respirations 18 temperature is 98.1 F height is 5 feet 5 inches weight is 236 pounds. PE: PHYSICAL EXAMINATION: GENERAL: The patient is awake, alert, oriented, appropriate, very pleasant in demeanor HEENT: Shows normocephalic, atraumatic. Extraocular movements are intact and symmetrical. Oral cavity: Mucous membranes moist and pink. Dentition is intact. NECK: Shows anterior throat supple without palpable lymphadenopathy noted. Swallow reflex symmetrical. CHEST: Shows normal on inspection. Breath sounds are clear bilaterally, distant but no rales rhonchi wheezes auscultated. HEART: Shows S1, S2 clear. No murmurs auscultated. ABDOMEN: Soft, nontender, nondistended. No palpable organomegaly is noted. No rebound or guarding demonstrated. BACK: Shows spine grossly in the midline. Normal-appearing cervical lordotic curvature. There is increased thoracic kyphosis, some flattening of the lumbar lordotic curvature. Lumbar paraspinous muscles show symmetrical on inspection, on palpation shows some moderate tenderness diffusely throughout the upper, middle and lower distribution of the paraspinous muscles bilaterally and also into the lower thoracic paraspinous musculature, with significant very firm ropelike musculature throughout the bilateral trapezius more on the right than the left as well as the rhomboid musculature bilaterally again worse on the right than the left and this is suprascapular and infrascapular distributions also the thoracic paraspinous muscles are bilaterally much more tender with very firm ropelike musculature bilaterally into the inferior aspect of the thoracic paraspinous muscular more tender on the left side as well as in the superior medial distribution of the lumbar paraspinous muscles again worse on the left than the right but present with firm ropelike musculature left greater than right. The patient has good rotational motion of the lumbar spine, both laterally as well as extension and flexion without significant difficulty. No tenderness over the spinous processes, sacrum or sacroiliac regions. EXTREMITIES: Lower extremities show deep tendon reflexes 2+ in the patellar and tendo calcaneus tendons. Motor exam is 5 on a scale of 5 with right dorsiflexion, extension, quadriceps and hamstring flexion and 5/5 on the left. Peripheral pulses are 1+ posterior tibial. No peripheral edema is noted bilaterally. Lower extremities are warm and dry to touch, equal in color and appearance. Upper extremity show deep tendon reflexes 2+ in the bicep triceps tendons, motor exam strong with pipe smoking machine offbearer strength rated 5 out of 5 as is bicep and tricep flexion. Peripheral pulses are 2+ radial. SKIN: Shows warm and dry, good turgor. No edema. No sores, rashes or bruising throughout. IMPRESSION: Impression: 66-year-old female with 7-month history mid upper back as well as mid lower back pain status post thoracic laminectomy. Physical therapy and deep tissue massage with increase in pain Hypertension COPD Arthritis Diabetes History of rectal cancer Plan: Options were discussed with patient could exert medical managements physical therapies and medical techniques. Patient elects interventional techniques that she has done physical therapy as well as deep tissue massage with increasing pain. We discussed trigger point injections of the identified musculature using description as well as anatomical models described procedure. Patient would like to proceed we will wait for preauthorization with patient insurance provider once obtained, will plan on trigger point injections of the bilateral trapezius musculature bilateral rhomboid musculature bilateral thoracic paraspinous posture and bilateral lumbar paraspinous musculature. Meantime, patient will continue with stretching strengthening and heat application as well as oral analgesics. We will also call in a Medrol Dosepak patient is given instructions well side effects aware with the medication and will follow up as scheduled. HUONG SHIRLEY MD Aug 08, 2021 12:18
== END | disposition home or self-care (01) ==
LOC: PNCL 10:20
PROVIDERS: ATTEND Anesthesiology
DX: M54.50 Low back pain, unspecified (principal); M19.90 Unspecified osteoarthritis, unspecified site; I10 Essential (primary) hypertension; J44.9 Chronic obstructive pulmonary disease, unspecified; E11.9 Type 2 diabetes mellitus without complications; G47.30 Sleep apnea, unspecified; E78.00 Pure hypercholesterolemia, unspecified; K21.9 Gastro-esophageal reflux disease without esophagitis; E66.9 Obesity, unspecified; E03.9 Hypothyroidism, unspecified; F41.9 Anxiety disorder, unspecified; F32.9 Major depressive disorder, single episode, unspecified; Z90.49 Acquired absence of other specified parts of digestive tract; Z90.710 Acquired absence of both cervix and uterus; Z98.890 Other specified postprocedural states; Z85.048 Personal history of other malignant neoplasm of rectum, rectosigmoid junction, and anus; Z87.891 Personal history of nicotine dependence; Z88.5 Allergy status to narcotic agent; Z88.8 Allergy status to other drugs, medicaments and biological substances; Z82.49 Family history of ischemic heart disease and other diseases of the circulatory system; Z83.3 Family history of diabetes mellitus
CPT/HCPCS: G0463

== ENCOUNTER → 2021-08-22 | Outpatient (CLI) | payer MEDICARE, MEDICAID ==
[~2021-08-22] MED LIST changes: +BUPIVACAINE MPF 0.25% 10 ML VIAL. ONE; +methylPREDNISolone ACETATE 40 MG/ML VIAL. ONE
--- NOTE | 2021-08-22 11:33 | PDOC ---
Progress Note - Pain Clinic Date of Service: DOS: DATE: 08/22/21 TIME: 11:28 Diagnosis: Dx: Myofascial pain Thoracic postlaminectomy syndrome History or Present Illness: HPI: 66-year-old female returns for follow-up after evaluation for trigger point injections mostly on the left but on bilateral mid back lower back upper back rates a 10 on scale 10 is worse over the past week 9 on average 9 its least is a 9 today patient reports pain is sharp and burning stabbing mostly on the left side worse with motion worse with trying to sleep patient cannot sit still because the pain constantly keeps removing to try and get a comfortable position patient reports it radiates across the back but not into the extremities patient reports it can be severe at times and unbearable on and off in intensity and patient has secondary pain in the low back itself and radiating to left posterior gluteus posterior thigh posterior calf and into the sole of the foot and the lateral toes on the left side as well in a radicular fashion. This radicular pain follows the L5-S1 dermatomal distribution and patient has had a lumbar surgery as well. Patient reports no deficits no bowel bladder incontinence currently. Physical Exam: VS: Blood pressure is 144/71 pulse 73 respirations 18 temperature 98.1 F height 5 feet 5 inches weight is 231 pounds PE: PHYSICAL EXAMINATION: GENERAL: The patient is awake, alert, oriented, appropriate, very pleasant in demeanor HEENT: Shows normocephalic, atraumatic. Extraocular movements are intact and symmetrical. Oral cavity: Mucous membranes moist and pink. Dentition is intact. NECK: Shows anterior throat supple without palpable lymphadenopathy noted. Swallow reflex symmetrical. CHEST: Shows normal on inspection. Breath sounds are clear bilaterally, distant but no rales rhonchi wheezes. HEART: Shows S1, S2 clear. No murmurs auscultated. ABDOMEN: Soft, nontender, nondistended, obese. No palpable organomegaly is noted. BACK: Shows spine grossly in the midline. Normal-appearing cervical lordotic curvature. There is slightly increased thoracic kyphosis, some minor flattening of the lumbar lordotic curvature. With palpation shows significant tenderness very firm ropelike musculature throughout the bilateral trapezius musculature more on the left than the right also into the bilateral rhomboid musculature in the left infrascapular musculature very tender very firm ropelike musculature throughout as is present into the is thoracic paraspinous muscles bilaterally as well as the upper lumbar paraspinous muscular very firm ropelike musculature consistent with trigger point areas of muscle bilaterally in all of these regions again more tender on the left side but without specific radiation. The patient has good rotational motion of the lumbar spine, both laterally as well as extension and flexion without significant difficulty. EXTREMITIES: Lower extremities show deep tendon reflexes 2+ in the patellar and tendo calcaneus tendons. Motor exam is 5 on a scale of 5 with right dorsiflexion, extension, quadriceps and hamstring flexion and 5/5 on the left. Peripheral pulses are 1 posterior tibial. No peripheral edema is noted bilaterally. Lower extremities are warm and dry to touch, equal in color and appearance. SKIN: Shows warm and dry, good turgor. No edema. No sores, rashes or bruising throughout. Procedure: Procedure: Options were discussed with patient. Patient's old chart was reviewed as her current medication regimen updated current review of systems updated today as well. We will proceed with trigger point injections of the identified musculature in the bilateral trapezius bilateral rhomboid bilateral thoracic paraspinous posterior left infrascapular musculature and bilateral lumbar paraspinous musculature. Risk were discussed including but not limited to bleeding infection possibility of intravascular injection sequelae spread local anesthetic numbness pneumothorax side effects steroid medication portals regarding pain control. Patient understands wished to proceed. Patient return to clinic in approximately 2 weeks for follow-up, was counseled as return ap pointment, activity level, and side effect to be aware of. Patient has clinical L5-S1 radiculopathy and left lower extremity to the foot and toes with history of lumbar decompressive surgery as well as degenerative disc disease in the lumbosacral spine. We will preauthorize patient for lumbar epidural steroid injection on the left translaminar approach to the L5-S1 level with fluoroscopic guidance. Medication Injected: Med Injected: Patient sitting position under sterile prep and drape trigger point areas were identified in the bilateral trapezius left infrascapular bilateral rhomboid musculature bilateral thoracic paraspinous posterior and bilateral lumbar paraspinous posture. Using 25-gauge needle injected after negative aspiration each injection site total of 12 cc 0.25% ropivacaine and total of 40 mg Depo- Medrol. Patient tolerated procedure well and had no complications. Condition at Discharge: Condition at Discharge: Condition at discharge stable, paced tolerated procedure well and had no complications. HUONG SHIRLEY MD Aug 22, 2021 11:33
--- NOTE | 2021-08-22 11:34 | PDOC4 ---
Procedure Note: ICD 10 Code: ICD 10 Code: M60.89 Procedure Note: Patient was consented for trigger point injections. Risk were discussed including but not limited to bleeding infection possibly intravascular injection sequelae spread local anesthetic numbness pneumothorax side effects of steroid medication portals regarding pain control. Patient understands wished to proceed. Patient sitting position under sterile prep and drape trigger point areas were identified in the bilateral trapezius left infrascapular bilateral rhomboid musculature bilateral thoracic paraspinous posterior and bilateral lumbar paraspinous posture. Using 25-gauge needle injected after negative aspiration each injection site total of 12 cc 0.25% ropivacaine and total of 40 mg Depo- Medrol. Patient tolerated procedure well and had no complications. HUONG SHIRLEY MD Aug 22, 2021 11:34
== END | disposition home or self-care (01) ==
LOC: PNCL 10:36
PROVIDERS: ATTEND Anesthesiology
DX: M79.18 Myalgia, other site (principal); M96.1 Postlaminectomy syndrome, not elsewhere classified; I10 Essential (primary) hypertension; E78.00 Pure hypercholesterolemia, unspecified; J44.9 Chronic obstructive pulmonary disease, unspecified; E66.9 Obesity, unspecified; E03.9 Hypothyroidism, unspecified; E11.9 Type 2 diabetes mellitus without complications; K21.9 Gastro-esophageal reflux disease without esophagitis; F41.9 Anxiety disorder, unspecified; F32.9 Major depressive disorder, single episode, unspecified; Z87.891 Personal history of nicotine dependence; Z90.710 Acquired absence of both cervix and uterus; Z98.890 Other specified postprocedural states; Z79.899 Other long term (current) drug therapy; Z88.5 Allergy status to narcotic agent; Z88.8 Allergy status to other drugs, medicaments and biological substances
CPT/HCPCS: 20553; J1030; J3490

== ENCOUNTER → 2021-12-12 | Outpatient (CLI) | payer MEDICARE, MEDICAID ==
[~2021-12-12] MED LIST changes: -BUPIVACAINE MPF 0.25% 10 ML VIAL. ONE; -methylPREDNISolone ACETATE 40 MG/ML VIAL. ONE
--- NOTE | 2021-12-12 14:56 | KCIC ---
EXAM: MRI right shoulder DATE: 12/12/2021 11:00 AM COMPARISON: None INDICATION: Reason: RIGHT SHOULDER PAIN / Spl. Instructions: FLEX COIL used today / History: Rt shoul caroline pain and LROM, known arthritis. TECHNIQUE: Multiplanar, multisequence MRI of the right shoulder was performed without contrast. FINDINGS: AC joint degenerative changes are seen with bulky associated osteophytes. Mild associated a.c. edema. Trace subacromial-subdeltoid bursal edema, bursitis. No shoulder joint effusion. Thickening of the i nferior joint capsule. Mild increased signal within the supraspinatus and infraspinatus tendon, tendinosis. Rotator cuff mus kimberly signal and bulk is normal without fatty atrophy. Mild increased signal intra-articular long head biceps tendon, tendinosis. No definite labral tear is seen at the posterior inferior labrum is mildly diminutive. Evaluation of articular cartilage is limited given artifacts. Within these constraints no discrete fu ll-thickness defect is identified. No acute fracture or osteonecrosis. IMPRESSION: 1. Supraspinatus and infraspinatus tendinosis. No rotator cuff tear. 2. Thickening of the inferior joint capsule may be seen with adhesive capsulitis. 3. Mild intra-articular long head biceps tendinosis. 4. Trace subacromial-subdeltoid bursal edema, bursitis. 5. 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 Electronically signed by: Tarun Spencer MD (12/12/2021 2:53 PM) [id number]
== END ==
LOC: KCIC MRI 10:40
PROVIDERS: ATTEND Orthopaedic Surgery
DX: M19.011 Primary osteoarthritis, right shoulder (principal); M75.81 Other shoulder lesions, right shoulder; M75.01 Adhesive capsulitis of right shoulder
CPT/HCPCS: 73221